=== PATIENT | female | born 1935 | race Caucasian/White ===

== ENCOUNTER 2017-12-22 06:37 | Inpatient (IN) | payer MEDICARE ==
[~2017-12-22] VITALS: Ht 162.6 cm; Wt 80.8 kg
[2017-12-22] VITALS (7 sets, daily range): BP systolic 152–169; BP diastolic 63–71
[~2017-12-22 06:37] MED LIST: ACID REDUCER200 MG PO; AMILORIDE HCL-1 EACH PO; ASPIR 8181 MG PO; B-12500 MCG PO; COSAMIN ASU CA1 EACH PO; D3 PO; LOSARTAN POTAS100 MG PO; OSCAL PO; SIMVASTATIN40 MG PO; TRAMADOL-ACETAMI1 EA PO; VERAPAMIL ER120 MG PO
[2017-12-22] MEDS ORDERED: ONDANSETRON HCL INJ 2 MG/ML VIAL IV STA ×2 (06:55→09:26)
[2017-12-22] MEDS ORDERED: HYDROMORPHONE 1MG/1ML INJ IV STA (06:55)
[2017-12-22] MEDS ORDERED: ONDANSETRON HCL INJ 2 MG/ML VIAL ONE (06:57)
[2017-12-22] MEDS ORDERED: HYDROMORPHONE 2MG/ML 2 MG/ML ML ONE (06:57)
[2017-12-22 07:06] LABS: BASOPHILS # (AUTO) 0.1 (0.0-0.1); BASOPHILS % 0.4 % (0.0-1.0); EOSINOPHILS # (AUTO) 0.1 (0.0-0.4); EOSINOPHILS % 0.5 % (0.0-6.0); HEMATOCRIT 36.7 % (34.2-44.1); HEMOGLOBIN 12.7 g/dL (12.0-16.0); LYMPHOCYTES # (AUTO) 1.6 (1.0-3.2); LYMPHOCYTES % 10.4 % (18.0-39.1); MEAN CORPUSCULAR HEMOGLOBIN 32.4 pg (28-32); MEAN CORPUSCULAR HGB CONC 34.6 g/dL (31-35); MEAN CORPUSCULAR VOLUME 93.6 fL (81-99); MONOCYTES # (AUTO) 1.5 (0.2-0.8); MONOCYTES % 9.6 % (4.4-11.3); NEUTROPHILS % 78.4 % (38.7-80.0); PLATELET COUNT 257 x10e3/uL (140-360); RED BLOOD COUNT 3.92 x10e6/uL (3.6-5.1); RED CELL DISTRIBUTION WIDTH 12.4 % (11.7-14.4)
[2017-12-22 07:10] LABS: INR 0.8; PARTIAL THROMBOPLASTIN TIME 24.6 seconds (23.8-35.5); PROTHROMBIN TIME 11.8 seconds (11.9-14.5)
[2017-12-22] MEDS ORDERED: HYDROMORPHONE 2MG/ML 2 MG/ML ML IV NR (07:15)
[2017-12-22 07:19] LABS: ALBUMIN 4.1 g/dL (3.5-5.0); ALBUMIN/GLOBULIN RATIO 1.5 (0.8-2.0); CALCIUM 10.1 mg/dL (8.4-10.2); CREATININE, SERUM 1.13 mg/dL (0.57-1.11)
[2017-12-22] MEDS ORDERED: IRBESARTAN300 MG PO (07:50)
[2017-12-22] MEDS ORDERED: ACEBUTOLOL HCL400 MG PO (07:50)
[2017-12-22] MEDS ORDERED: AMLODIPINE BESY10 MG PO (07:50)
[2017-12-22] MEDS ORDERED: ULTRAM 50MG50 MG PO (07:50)
[2017-12-22] MEDS ORDERED: HYDROCHLOROTH12.5 M1 PO (07:50)
[2017-12-22 07:55] LABS: BILIRUBIN,URINE NEGATIVE (NEGATIVE); CLARITY,URINE CLOUDY (CLEAR); COLOR,URINE YELLOW (YELLOW); KETONES,URINE NEGATIVE (NEGATIVE); LEUKOCYTE ESTERASE ,URINE TRACE (NEGATIVE); NITRITE,URINE POSITIVE (NEGATIVE); PROTEIN,URINE DIPSTICK 1+ (NEGATIVE); URINE UROBILINOGEN 0.2 mg/dL (0.2 - 1)
[2017-12-22 07:56] LABS: BACTERIA,URINE MANY /HPF; EPITHELIAL CELLS,URINE RARE /LPF; RBC,URINE 0-5 /HPF (0-5); WBC,URINE (MAN) >50 /HPF (0-5)
[2017-12-22] MEDS: CEFTRIAXONE SOD 1 GM VIAL IV SCH (08:37)
--- NOTE | 2017-12-22 08:58 | Diagnostic Imaging Report ---
PROCEDURE: A single AP view of the chest. COMPARISON: Chest radiograph 07/06/2011. Report from chest radiograph 06/15/2016 is available but images are not available at the time of dictation. INDICATIONS: FALL FINDINGS: Lines/tubes: None. Lungs: The lungs are well inflated. There is a rounded opacity with internal lucency projecting over the left lower lung zone. Incidental azygous lobe. Pleura: There is no pleural effusion or pneumothorax. Heart and mediastinum: Large hiatal hernia. Cardiac silhouette is unremarkable. Bones: No acute bony abnormality. IMPRESSION: No evidence of displaced fracture or pneumothorax. Nodular opacity with internal lucency overlying the left lower lung likely represents nipple shadow or overlying rib. However, a lung nodule can have a similar appearance. A repeat chest radiograph with nipple marker is suggested. Large hiatal hernia. Dictated by: BEA MARQUEZ M.D. on 12/22/2017 at 9:06 Electronically approved by: BEA MARQUEZ M.D. on 12/22/2017 at 9:06
--- NOTE | 2017-12-22 09:10 | Diagnostic Imaging Report ---
PROCEDURE:HIP LEFT 2-3 VW (+/- PELVIS) COMPARISON:None. INDICATIONS:FALL FINDINGS: Diffuse osteopenia. There is a displaced left femoral neck fracture, visualization is somewhat limited but possibly a transcervical neck fracture. There is approximately 1.5 cm of lateral displacement of the distal component. The left femoral head is aligned with the acetabulum. AP radiograph of the pelvis demonstrates moderate bilateral hip degenerative changes with joint space narrowing and subchondral sclerosis. Moderate degenerative changes of the pubic symphysis and bilateral sacroiliac joints. Partially seen lower lumbar spine degenerative changes. CONCLUSION: Displaced left femoral neck fracture, possibly transcervical as above. Dictated by: BEA MARQUEZ M.D. on 12/22/2017 at 9:18 Electronically approved by: BEA MARQUEZ M.D. on 12/22/2017 at 9:18
[2017-12-22] MEDS ORDERED: DEXTROSE 50% SYRINGE 50 ML IV PRN (09:45)
[2017-12-22] MEDS ORDERED: HYDROMORPHONE 1MG/1ML INJ IV PRN (09:45)
--- OUTSIDE RECORDS SUMMARY | 2017-12-22 10:05 | XMS REPORT ---
Author Author [facility] Address Unknown Phone Unavailable Care Team Providers Care Surveying Crew Stake Runner Name Role Phone RASHAUNCONY Hardy SEARS Unavailable Unavailable Problems This patient has no known problems. Allergies, Adverse Reactions, Alerts This patient has no known allergies or adverse reactions. Medications This patient has no known medications. Results Test Description Test Time Test Comments Text Results Atomic Results Result Comments HIP LEFT 2-3 VW (+/- PELVIS) 2017-12-22 09:18:00 [place] [id number] Patient Name: TRISTA JENSEN MR #: [id number] : 1935 Age/Sex: 82/F Req #: [id number] Adm Physician: Ordered by: XOCHILT WELLS MD Report #: [id number] Location: ER Room/Bed: Procedure: [id number] DX/HIP LEFT 2-3 VW (+/- PELVIS) Exam Date: Exam Time: REPORT STATUS: Signed PROCEDURE: HIP LEFT 2-3 VW (+/- PELVIS) COMPARISON: None. INDICATIONS: FALL FINDINGS: Diffuse osteopenia. There is a displaced left femoral neck fracture, visualization is somewhat limited but possibly a transcervical neck fracture. There is approximately 1.5 cm of lateral displacement of the distal component. The left femoral head is aligned with the acetabulum. AP radiograph of the pelvis demonstrates moderate bilateral hip degenerative changes with joint space narrowing and subchondral sclerosis. Moderate degenerative changes of the pubic symphysis and bilateral sacroiliac joints. Partially seen lower lumbar spine degenerative changes. CONCLUSION: Displaced left femoral neck fracture, possibly transcervical as above. Dictated by: BEA MARQUEZ M.D. on 12/22/2017 at 9:18 Electronically approved by: BEA MARQUEZ M.D. on 12/22/2017 at 9:18 Dictated By: BEA MARQUEZ MD 7 Transcribed By: VIOLA on 12/22/17917 COPY TO: XOCHILT WELLS MD CHEST SINGLE (PORTABLE) 2017-12-22 09:06:00 [place] [id number] Patient Name: TRISTA JENSEN MR #: [id number] : 1935 Age/Sex: 82/F Req #: [id number] Adm Physician: Ordered by: XOCHILT WELLS MD Report #: [id number] Location: ER Room/Bed: Procedure: [id number] DX/CHEST SINGLE (PORTABLE) Exam Date: Exam Time: REPORT STATUS: Signed PROCEDURE: A single AP view of the chest. COMPARISON: Chest radiograph 07/06/2011. Report from chest radiograph 06/15/2016 is available but images are not available at the time of dictation. INDICATIONS: FALL FINDINGS: Lines/tubes: None. Lungs: The lungs are well inflated. There is a rounded opacity with internal lucency projecting over the left lower lung zone. Incidental azygous lobe. Pleura: There is no pleural effusion or pneumothorax. Heart and mediastinum: Large hiatal hernia. Cardiac silhouette is unremarkable. Bones: No acute bony abnormality. IMPRESSION: No evidence of displaced fracture or pneumothorax. Nodular opacity with internal lucency overlying the left lower lung likely represents nipple shadow or overlying rib. However, a lung nodule can have a similar appearance. A repeat chest radiograph with nipple marker is suggested. Large hiatal hernia. Dictated by: BEA MARQUEZ M.D. on 12/22/2017 at 9:06 Electronically appro marybeth by: BEA MARQUEZ M.D. on 12/22/2017 at 9:06 Dictated By: BEA MARQUEZ MD 5 Transcribed By: VIOLA on 12/22/17905 COPY TO: XOCHILT WELSL MD
[2017-12-22] MEDS: SODIUM CHLORIDE 0.9% 1000ML 1,000 ML IV SCH ×2 (10:10→17:36)
[2017-12-22] MEDS: ONDANSETRON HCL INJ 2 MG/ML VIAL IV PRN ×3 (11:28→19:51)
[2017-12-22] MEDS: HYDROMORPHONE 2MG/ML 2 MG/ML ML IV PRN ×2 (11:28→19:51)
[2017-12-22] MEDS: INSULIN REGULAR, HUMAN 100 UNIT/1 ML 3ML VIAL SQ SCH ×3 (11:30→21:00)
--- NOTE | 2017-12-22 15:19 | Consultation ---
DATE OF CONSULTATION: December 22, 2017 CARDIOLOGY CONSULTATION REASON FOR CONSULTATION: Heart murmur. HISTORY OF PRESENT ILLNESS: This is a pleasant, 82-year-old female who presented status post fall. According to the patient, she stated she woke up this morning feeling sick to her stomach. She lost her balance and accidentally fell. She complained of left hip pain, and she was brought to the emergency room for further evaluation. In the ER, they did a hip x-ray that showed left hip fracture. She is on lift traction and planning surgical intervention. She has a history of high blood pressure and hyperlipidemia. She denied any chest pain, any dizziness, any shortness of breath, any headache or diaphoresis. EKG showed normal sinus rhythm with no ST abnormalities. PAST MEDICAL HISTORY: Hypertension, hyperlipidemia, arthritis, glaucoma, cataracts, hiatal hernia, diverticulitis, internal hemorrhoids, hyponatremia. PAST SURGICAL HISTORY: Hysterectomy, tonsillectomy and colonoscopy in the past. FAMILY HISTORY: Positive for CAD. SOCIAL HISTORY: No smoking, no drinking. She lives at home with her family. MEDICATIONS: See med list. ALLERGIES: SHE HAS MULTIPLE ALLERGIES; SEE CHART. REVIEW OF SYSTEMS: Negative except those mentioned above. She is status post fall. PHYSICAL EXAMINATION VITAL SIGNS: Temperature 97, heart rate 69, blood pressure 153/70, respirations 20, oxygen saturation 95% on room air. GENERAL: She is awake, alert, and oriented x3. HEENT: Mucous membranes moist. NECK: Supple. LUNGS: Bilaterally clear to auscultation. CARDIOVASCULAR: S1, S2 present with a diastolic murmur of 2/4. ABDOMEN: Soft, but she is complaining of nausea and vomiting. NEUROLOGIC: Intact. EXTREMITIES: No edema. Left leg on traction. LABORATORY DATA: Sodium 155, potassium 4.0, chloride 99, CO2 of 23, BUN 13, creatinine 1.13, glucose 223, white blood cells 15.3, hemoglobin 12.7, hematocrit 36.7, platelets 57,000, PT 11.8 PTT 24.6, INR 0.80. IMPRESSION 1. Status post fall. 2. Left hip fracture. 3. Abdominal pain with nausea and vomiting. 4. Hypertension. 5. Hyperlipidemia. 6. Renal insufficiency. 7. Diabetes. 8. Heart murmur, diastolic and diastolic. PLAN: 1. She is to have echocardiogram to assess the LV and the value function. 2. Due to the nausea and vomiting, will to ahead and get a KUB to rule out any occlusion. 3. She is pending for hip surgery. 4. She will be cleared for surgery after echocardiogram. 5. Will continue her home blood pressure medications. Further cardiac work pending clinical course. Thank you for this consult. Dictated by Jesse Barcenas NP Job#: [id number] THAI
--- NOTE | 2017-12-22 16:01 | Diagnostic Imaging Report ---
EXAM: Abdomen 2 Views INDICATION: ^NAUSEA/VOMITTING ^20171222 ^1520 COMPARISON: None FINDINGS: Mild amount of stool in the colon. Few mildly distended loops of small bowel in the mid abdomen with positive bowel with gas in the rectum. No renal calculi. No abnormal soft tissue masses. Moderate degenerative changes in the lumbar spine and pelvis. IMPRESSION: Ileus versus partial small bowel obstruction. Recommend further evaluation with CT abdomen and pelvis with contrast. Signed by: Dr. Martha Martinez M.D. on 12/22/2017 3:58 PM
[2017-12-22] MEDS ORDERED: ACEBUTOLOL HCL 400 MG PO SCH (21:00)
[2017-12-22] MEDS ORDERED: TRAMADOL HCL 50 MG TAB PO PRN (21:00)
[2017-12-22] MEDS ORDERED: CIMETIDINE 200 MG PO SCH (21:00)
[2017-12-22] MEDS ORDERED: FAMOTIDINE 20 MG TAB PO PRN (21:30)
[2017-12-22] MEDS: ACEBUTOLOL HCL 200 MG CAP PO SCH (21:43)
[2017-12-22] MEDS: SIMVASTATIN 40 MG TAB PO SCH (21:43)
[2017-12-22] MEDS: PROMETHAZINE 25MG/ NS 50ML (IV) IV PRN (21:59)
[2017-12-23] VITALS (8 sets, daily range): BP systolic 142–182; BP diastolic 65–84
[2017-12-23] MEDS: ONDANSETRON HCL INJ 2 MG/ML VIAL IV PRN ×3 (01:32→17:14)
[2017-12-23] MEDS: SODIUM CHLORIDE 0.9% 1000ML 1,000 ML IV SCH ×3 (01:36→17:15)
[2017-12-23] MEDS: HYDRALAZINE HCL 20 MG/ML VIAL IV PRN (04:28)
[2017-12-23] MEDS: PROMETHAZINE 25MG/ NS 50ML (IV) IV PRN (04:40)
[2017-12-23] MEDS: MORPHINE SULFATE 2 MG/ML SYR IV PRN ×3 (04:40→17:14)
[2017-12-23 05:37] LABS: BASOPHILS % 0.2 % (0.0-1.0); HEMATOCRIT 32.6 % (34.2-44.1); HEMOGLOBIN 11.5 g/dL (12.0-16.0); LYMPHOCYTES % 6.2 % (18.0-39.1); MEAN CORPUSCULAR HEMOGLOBIN 32.4 pg (28-32); MEAN CORPUSCULAR HGB CONC 35.3 g/dL (31-35); MEAN CORPUSCULAR VOLUME 91.8 fL (81-99); MONOCYTES # (AUTO) 1.4 (0.2-0.8); MONOCYTES % 8.5 % (4.4-11.3); NEUTROPHILS # (AUTO) 14.1 (2.1-6.9); NEUTROPHILS % 83.6 % (38.7-80.0); PLATELET COUNT 235 x10e3/uL (140-360); RED BLOOD COUNT 3.55 x10e6/uL (3.6-5.1); RED CELL DISTRIBUTION WIDTH 12.5 % (11.7-14.4)
[2017-12-23 05:57] LABS: ANION GAP 16.6 mmol/L (8-16); BLOOD UREA NITROGEN 17 mg/dL (7-26); BUN/CREATININE RATIO 20 (6-25); CALCIUM 9.1 mg/dL (8.4-10.2); CARBON DIOXIDE 22 mmol/L (22-29); CHLORIDE 105 mmol/L (98-107); CREATININE, SERUM 0.86 mg/dL (0.57-1.11); EST GLOMERULAR FILTRATION RATE > 60 ML/MIN (60-); GLUCOSE 254 mg/dL (74-118); POTASSIUM 3.6 mmol/L (3.5-5.1); SODIUM 140 mmol/L (136-145)
[2017-12-23] MEDS: INSULIN REGULAR, HUMAN 100 UNIT/1 ML 3ML VIAL SQ SCH ×4 (07:30→21:47)
[2017-12-23] MEDS: ASPIRIN 81 MG CHEW TAB PO SCH (09:00)
[2017-12-23] MEDS: [UNRECOGNIZED DRUG - OTHER] PO SCH (09:00)
[2017-12-23] MEDS ORDERED: NON-FORMULARY MEDICATION (Hydrochlorothiazide 12.5 MG) PO SCH (09:00)
[2017-12-23] MEDS: CYANOCOBALAMIN 1,000 MCG TAB PO SCH (09:00)
[2017-12-23] MEDS ORDERED: NON-FORMULARY MEDICATION (Irbesartan 300 MG) PO SCH (09:00)
[2017-12-23] MEDS: IRBESARTAN 150 MG TAB PO SCH (09:00)
[2017-12-23] MEDS: CHOLECALCIFEROL 1,000 UNIT TAB PO SCH (09:00)
[2017-12-23] MEDS: AMLODIPINE BESYLATE 10 MG TAB PO SCH (09:00)
[2017-12-23] MEDS: ACEBUTOLOL HCL 200 MG CAP PO SCH ×3 (09:00→21:46)
[2017-12-23] MEDS: HYDROCHLOROTHIAZIDE 25 MG TAB PO SCH (09:00)
[2017-12-23] MEDS ORDERED: CYANOCOBALAMIN 500 MCG PO SCH (09:00)
[2017-12-23] MEDS: LOSARTAN POTASSIUM 100 MG TAB PO SCH (09:00)
[2017-12-23] MEDS ORDERED: INTLU PO SCH (09:00)
[2017-12-23] MEDS: CEFTRIAXONE SOD 1 GM VIAL IV SCH (09:30)
[2017-12-23] MEDS ORDERED: CLONIDINE HCL 0.1 MG/24 HR 1 EA PATCH ONE (09:34)
[2017-12-23] MEDS ORDERED: CLONIDINE HCL 0.1 MG/24 HR 1 EA PATCH TOP SCH (09:45)
--- NOTE | 2017-12-23 14:50 | Diagnostic Imaging Report ---
EXAMINATION: CT of the abdomen and pelvis without contrast. TECHNIQUE: Helical CT images of the abdomen and pelvis were performed from the lung bases to the lesser trochanters. No intravenous contrast was given per renal stone protocol. Coronal and sagittal reformatted images were obtained. COMPARISON: None. CLINICAL HISTORY:pain, fall DISCUSSION: ABSENCE OF INTRAVENOUS CONTRAST DECREASES SENSITIVITY FOR DETECTION OF FOCAL LESIONS AND VASCULAR PATHOLOGY. ABDOMEN/PELVIS: LOWER THORAX: Large hiatal hernia. HEPATOBILIARY:No focal hepatic lesions. No biliary ductal dilation. Cholecystectomy with reservoir effect in the common bile duct. SPLEEN: No splenomegaly. PANCREAS: No focal masses or ductal dilatation. ADRENALS: No adrenal nodules. KIDNEYS/URETERS: No hydronephrosis, stones, or solid mass lesions. PELVIC ORGANS/BLADDER: Manzano catheter within the decompressed bladder. Hysterectomy. PERITONEUM/RETROPERITONEUM: No free air or fluid. LYMPH NODES: No intra-abdominal,retroperitoneal, pelvic or inguinal lymphadenopathy. VESSELS: Vascular calcifications. GI TRACT: Mildly dilated loops of small bowel measuring up to 4 cm. The transition point is not well identified. BONES AND SOFT TISSUES: Multilevel degenerative disc disease most severe at L1-L2 and L5-S1. Lower lumbar facet arthropathy. Retrolisthesis of L1 on L2. Subacute appearing displaced fracture of the left femoral neck with impaction. IMPRESSION: Multiple dilated loops of small bowel likely reflects obstruction. The transition point is not well identified. Subacute appearing displaced left femoral neck fracture Signed by: Dr. Lenny Sheridan M.D. on 12/23/2017 2:47 PM
[2017-12-23] MEDS: ENOXAPARIN 30 MG/0.3 ML SYR SC SCH (17:15)
[2017-12-23] MEDS: SIMVASTATIN 40 MG TAB PO SCH (21:46)
[2017-12-24] VITALS: BP 174/74
[2017-12-24] MEDS: HYDRALAZINE HCL 20 MG/ML VIAL IV PRN ×2 (00:53→17:09)
[2017-12-24] MEDS: SODIUM CHLORIDE 0.9% 1000ML 1,000 ML IV SCH ×2 (01:36→09:36)
[2017-12-24] MEDS: MORPHINE SULFATE 2 MG/ML SYR IV PRN ×3 (02:10→11:15)
[2017-12-24 04:00] VITALS: BP 184/72
[2017-12-24] MEDS: ONDANSETRON HCL INJ 2 MG/ML VIAL IV PRN ×3 (06:32→17:44)
[2017-12-24] MEDS: INSULIN REGULAR, HUMAN 100 UNIT/1 ML 3ML VIAL SQ SCH ×3 (07:30→16:30)
[2017-12-24] MEDS: CEFTRIAXONE SOD 1 GM VIAL IV SCH (08:30)
[2017-12-24 08:40] VITALS: BP 167/70
[2017-12-24 08:45] VITALS: BP 167/70
[2017-12-24] MEDS: LOSARTAN POTASSIUM 100 MG TAB PO SCH (09:00)
[2017-12-24] MEDS: ACEBUTOLOL HCL 200 MG CAP PO SCH ×2 (09:00→15:00)
[2017-12-24] MEDS: HYDROCHLOROTHIAZIDE 25 MG TAB PO SCH (09:00)
[2017-12-24] MEDS: AMLODIPINE BESYLATE 10 MG TAB PO SCH (09:00)
[2017-12-24] MEDS: IRBESARTAN 150 MG TAB PO SCH (09:00)
[2017-12-24] MEDS: CYANOCOBALAMIN 1,000 MCG TAB PO SCH (09:00)
[2017-12-24] MEDS: [UNRECOGNIZED DRUG - OTHER] PO SCH (09:00)
[2017-12-24] MEDS: CHOLECALCIFEROL 1,000 UNIT TAB PO SCH (09:00)
[2017-12-24] MEDS: ASPIRIN 81 MG CHEW TAB PO SCH (09:00)
[2017-12-24 12:24] VITALS: BP 145/65
[2017-12-24 14:14] LABS: BASOPHILS % 0.2 % (0.0-1.0); HEMATOCRIT 31.7 % (34.2-44.1); HEMOGLOBIN 10.8 g/dL (12.0-16.0); LYMPHOCYTES # (AUTO) 1.9 (1.0-3.2); LYMPHOCYTES % 9.8 % (18.0-39.1); MEAN CORPUSCULAR HEMOGLOBIN 32.7 pg (28-32); MEAN CORPUSCULAR HGB CONC 34.1 g/dL (31-35); MEAN CORPUSCULAR VOLUME 96.1 fL (81-99); MONOCYTES # (AUTO) 2.9 (0.2-0.8); MONOCYTES % 14.6 % (4.4-11.3); NEUTROPHILS # (AUTO) 14.7 (2.1-6.9); NEUTROPHILS % 74.7 % (38.7-80.0); PLATELET COUNT 211 x10e3/uL (140-360); RED CELL DISTRIBUTION WIDTH 12.9 % (11.7-14.4)
[2017-12-24] MEDS: PROMETHAZINE 25MG/ NS 50ML (IV) IV PRN ×2 (14:20→14:45)
[2017-12-24] MEDS ORDERED: SODIUM CHLORIDE 0.9% 50ML 50 ML ONE (14:33)
[2017-12-24 14:36] LABS: ALANINE AMINOTRANSFERASE 15 IU/L (0-55); ALBUMIN 3.1 g/dL (3.5-5.0); ALBUMIN/GLOBULIN RATIO 1.1 (0.8-2.0); ALKALINE PHOSPHATASE 44 IU/L (40-150); ANION GAP 14.5 mmol/L (8-16); BLOOD UREA NITROGEN 19 mg/dL (7-26); BUN/CREATININE RATIO 25 (6-25); CARBON DIOXIDE 23 mmol/L (22-29); CHLORIDE 113 mmol/L (98-107); CREATININE, SERUM 0.76 mg/dL (0.57-1.11); EST GLOMERULAR FILTRATION RATE > 60 ML/MIN (60-); GLUCOSE 150 mg/dL (74-118); POTASSIUM 3.5 mmol/L (3.5-5.1); SODIUM 147 mmol/L (136-145)
[2017-12-24] MEDS ORDERED: SODIUM CHLORIDE 0.9% 250ML IRRIG IR SCH (16:15)
[2017-12-24 16:49] VITALS: BP 171/67
[2017-12-24] MEDS: ENOXAPARIN 30 MG/0.3 ML SYR SC SCH (17:09)
[2017-12-24] MEDS ORDERED: CEFTRIAXONE SOD 1 GM VIAL IV SCH (21:00)
== END 2017-12-24 18:31 | disposition short-term general hospital (02) | DRG 536 ==
LOC: ER 06:37 → ERHOLD 10:03 → MED/SURG 11:09 → ERHOLD 11:11 → MED/SURG 11:33
DX: S72.032A Displaced midcervical fracture of left femur, initial encounter for closed fracture (principal); N30.00 Acute cystitis without hematuria; K56.7 Ileus, unspecified; W01.0XXA Fall on same level from slipping, tripping and stumbling without subsequent striking against object, initial encounter; Y92.009 Unspecified place in unspecified non-institutional (private) residence as the place of occurrence of the external cause; B96.20 Unspecified Escherichia coli [E. coli] as the cause of diseases classified elsewhere; E11.65 Type 2 diabetes mellitus with hyperglycemia; Z66 Do not resuscitate; N28.9 Disorder of kidney and ureter, unspecified; R11.2 Nausea with vomiting, unspecified; R10.9 Unspecified abdominal pain; M06.9 Rheumatoid arthritis, unspecified; H40.9 Unspecified glaucoma; K44.9 Diaphragmatic hernia without obstruction or gangrene; K64.8 Other hemorrhoids; I35.0 Nonrheumatic aortic (valve) stenosis; I10 Essential (primary) hypertension; Z82.49 Family history of ischemic heart disease and other diseases of the circulatory system; Z79.82 Long term (current) use of aspirin; E78.5 Hyperlipidemia, unspecified
CPT/HCPCS: 36415; 51700; 71045; 74018; 74176; 80048; 80053; 81001; 82948; 83036; 85025; 85610; 85730; 87086; 87186; 93005; 93306; 97139; 99284; J0360; J0696; J1650; J2270; J2405; J2550; J7030

== ENCOUNTER 2018-03-03 16:48 | Emergency (ER) | payer MEDICARE ==
[~2018-03-03] VITALS: Ht 162.6 cm; Wt 67.1 kg
[~2018-03-03 16:48] MED LIST changes: +ACEBUTOLOL HCL400 MG PO; +AMLODIPINE BESY10 MG PO; +HYDROCHLOROTH12.5 M1 PO; +IRBESARTAN300 MG PO; +ULTRAM 50MG50 MG PO
--- OUTSIDE RECORDS SUMMARY | 2018-03-03 16:52 | XMS REPORT | Clinical Summary ---
Author Author [facility] Organization [facility] Address Unknown Phone Unavailable Care Team Providers Care Supervisor Cold Rolling Name Role Phone Asked, No Pcp PCP Unavailable Allergies Comments Active Allergy Reactions Severity Noted Date Codeine GI 12/24/2017 Intolerance Amitriptyline 12/24/2017 Iodine Anaphylaxis High 12/24/2017 Sulfa (Sulfonamide 12/24/2017 Antibiotics) Medications End Date Status Medication Sig Dispensed Refills Start Date Active aspirin (ECOTRIN) 81 MG Take 81 mg by 0 enteric coated tablet mouth daily. Active simvastatin (ZOCOR) 40 MG Take 40 mg by 0 tablet mouth nightly. Active hydroCHLOROthiazide Take 12.5 mg 0 (HYDRODIURIL) 12.5 MG by mouth tablet daily. Active irbesartan (AVAPRO) 300 Take 300 mg 0 MG tablet by mouth nightly. Active cholecalciferol, vitamin Take 1,000 0 D3, (VITAMIN D3) 1,000 Units by unit tablet mouth daily. Active cyanocobalamin (VITAMIN Take 500 mcg 0 B-12) 1000 MCG tablet by mouth daily. Active clonIDINE (CATAPRES-TTS) Place 1 patch 0 0.1 mg/24 hr on the skin once a week. 01/10/2018 Discontinued amLODIPine (NORVASC) 10 Take 10 mg by 0 mg tablet mouth daily. 01/09/2018 Discontinued acebutolol (SECTRAL) 200 Take 400 mg 0 MG capsule by mouth 2 (two) times a day. 02/09/2018 glipiZIDE (GLUCOTROL) 5 Take 1 tablet 30 tablet 0 201 MG tablet (5 mg total) 8 by mouth daily with breakfast for 30 days. 02/08/2018 enoxaparin (LOVENOX) 40 Inject 0.4 mL 12 mL 0 mg/0.4 mL syringe (40 mg total) 8 under the skin daily for 30 days. 02/08/2018 acebutolol (SECTRAL) 200 Take 1 120 capsule 0 MG capsule capsule (200 8 mg total) by mouth 2 (two) times a day for 30 days. 02/09/2018 acetaminophen (TYLENOL) Take 1 tablet 120 tablet 0 500 MG tablet (500 mg 8 total) by mouth 4 (four) times a day with meals and nightly for 30 days. 02/10/2018 amLODIPine (NORVASC) 5 mg Take 1 tablet 30 tablet 0 tablet (5 mg total) 8 by mouth daily for 30 days. 01/15/2018 colchicine 0.6 mg tablet Take 1 tablet 5 tablet 0 (0.6 mg 8 total) by mouth daily for 5 days. Active Problems Problem Noted Date Aortic stenosis 12/25/2017 Renovascular hypertension 12/25/2017 Hypertensive heart disease with chronic diastolic congestive heart failure 12/25/2017 L hip fx s/p JACQUELYN 12/26/17 12/24/2017 Closed fracture of left hip 12/24/2017 Overview: Added automatically from request for surgery [id number] Encounters Care Team Description Date Type Specialty Eyal Jett MD Status post left hip replacement (Primary Dx) 02/22/2018 Office Visit Orthopedic Surgery Mechelle Doran Left hip pain (Primary Dx) 02/15/2018 Orders Only Orthopedic Surgery Eyal Jett MD Closed displaced fracture of greater trochanter of left femur, initial encounter ([facility]) (Primary Dx); L hip fx s/p JACQUELYN 12/26/17; Closed fracture of left hip, sequela 01/25/2018 Office Visit Orthopedic Surgery Adrienne Mi MA Left hip pain (Primary Dx) 01/25/2018 Orders Only Orthopedic Surgery Edmar Mota MD 12/29/2017 Anesthesia General Surgery Event Ruddy Tamayo MD LAPAROTOMY, EXPLORATORY, NASIR, poss small bowel resection 12/29/2017 Surgery General Surgery Eyal Jett MD HEMIARTHROPLASTY, HIP, LEFT 12/26/2017 Surgery Orthopedic Surgery Selena Marie MD 12/26/2017 Anesthesia Orthopedic Surgery Event Chester Montano MD Closed fracture of left hip, initial encounter ([facility]) (Primary Dx); Hip fx, left, closed, initial encounter ([facility]) 12/24/2017 [facility] Orthopedic Surgery - Encounter 01/10/2018 N/A 12/24/2017 Intake Access after 03/02/2017 Social History Date Tobacco Use Types Packs/Day Years Used Never Smoker Smokeless Tobacco: Never Used Alcohol Use Drinks/Week oz/Week Comments No Alcohol Habits Answer Date Recorded How often do you have a drink containing alcohol? Never 12/26/2017 How many drinks containing alcohol do you have on Not asked a typical day when you are drinking? How often do you have six or more drinks on one Not asked occasion? Sex Assigned at Date Recorded Not on file Industry Job Start Date Occupation Not on file Not on file Not on file Travel End Travel History Travel Start No recent travel history available. Last Filed Vital Signs Time Taken Vital Sign Reading 01/10/2018 3:42 PM SOFTWARE CONFIGURATION SPECIALIST Blood Pressure 185/77 01/10/2018 3:42 PM SOFTWARE CONFIGURATION SPECIALIST Pulse 79 01/10/2018 3:42 PM SOFTWARE CONFIGURATION SPECIALIST Temperature 37.3 C (99.1 F) 01/10/2018 3:42 PM SOFTWARE CONFIGURATION SPECIALIST Respiratory Rate 17 01/10/2018 3:42 PM SOFTWARE CONFIGURATION SPECIALIST Oxygen Saturation 93% - Inhaled Oxygen - Concentration 02/22/2018 9:49 AM SOFTWARE CONFIGURATION SPECIALIST Weight 67.1 kg (148 lb) 02/22/2018 9:49 AM SOFTWARE CONFIGURATION SPECIALIST Height 157.5 cm (5' 2") 02/22/2018 9:49 AM SOFTWARE CONFIGURATION SPECIALIST Body Mass Index 27.07 Plan of Treatment Health Maintenance Due Date Last Done Comments SHINGLES VACCINES (1 of 1983 2) PNEUMOCOCCAL 1998 POLYSACCHARIDE VACCINE AGE 65 AND OVER PNEUMOCOCCAL-13 1998 INFLUENZA VACCINE 09/14/2017 Implants Device Identifier Shelf Expiration Date Model / Serial / Lot Implanted Type Area Manufactur er 11/06/2027 11 [id number] / / [id number] Head Fml Tpr I Modlr W/O Skirt Hip Joint Left: Hip [employer] Co-Cr 36x-3mm - [id number] Implants Implanted: Qty: 1 on 12/26/2017 by Eyal Jett MD 06/28/2027 [id number] / / [id number] Osseoti Multihole 50mm D - IPM Left: Hip BIOMET, [id number] [employer] Implanted: Qty: 1 on 12/26/2017 by DEVICES Eyal Jett MD 07/07/2022 [id number] / / [id number] Liner G7 Neutral Arcomxl E36 - IPM Left: Hip BIOMET, [id number] [employer] Implanted: Qty: 1 on 12/26/2017 by Eyal Mabry MD 09/18/2027 [id number] / / [id number] Echo Bimetric Por Fem Red Nc [id number] IPM Left: Hip BIOMET, - [id number] [employer] Implanted: Qty: 1 on 12/26/2017 by Eyal Mabry MD 11/14/2027 [id number] / / [id number] Screw Bone Slf-Tap 6.5x25mm Tr[employer] Orthopedic Left: Hip [employer] - [id number] Trauma Implanted: Qty: 1 on 12/26/2017 by Implants Eyal Jett MD 10/15/2027 [id number] / / [id number] Screw Bone Slf-Tap 6.5x30mm [employer] Left: Hip [employer] - [id number] Trauma Implanted: Qty: 1 on 12/26/2017 by Implants Eyal Jett MD Procedures Comments Procedure Name Priority Date/Time Associated Diagnosis XR HIP 2-3 VIEWS LEFT Routine 02/22/2018 Left hip pain 9:58 AM SOFTWARE CONFIGURATION SPECIALIST XR HIP 2-3 VIEWS LEFT Routine 01/25/2018 Left hip pain 10:04 AM SOFTWARE CONFIGURATION SPECIALIST POC GLUCOSE Routine 01/10/2018 11:29 AM SOFTWARE CONFIGURATION SPECIALIST POC GLUCOSE Routine 01/10/2018 7:39 AM SOFTWARE CONFIGURATION SPECIALIST ESTIMATED GFR Routine 01/10/2018 4:00 AM SOFTWARE CONFIGURATION SPECIALIST B NATRIURETIC PEPTIDE Routine 01/10/2018 4:00 AM SOFTWARE CONFIGURATION SPECIALIST BASIC METABOLIC PANEL Routine 01/10/2018 4:00 AM SOFTWARE CONFIGURATION SPECIALIST HC COMPLETE BLD COUNT Routine 01/10/2018 W/AUTO DIFF 4:00 AM SOFTWARE CONFIGURATION SPECIALIST POC GLUCOSE Routine 01/09/2018 9:37 PM SOFTWARE CONFIGURATION SPECIALIST POC GLUCOSE Routine 01/09/2018 8:42 PM SOFTWARE CONFIGURATION SPECIALIST CRYSTAL ANALYSIS STAT 01/09/2018 6:02 PM SOFTWARE CONFIGURATION SPECIALIST CELL COUNT AND STAT 01/09/2018 DIFFERENTIAL, BODY FLUID 6:02 PM SOFTWARE CONFIGURATION SPECIALIST XR KNEE 1 OR 2 VW RIGHT STAT 01/09/2018 5:55 PM SOFTWARE CONFIGURATION SPECIALIST GRAM STAIN Routine 01/09/2018 5:23 PM SOFTWARE CONFIGURATION SPECIALIST ANAEROBIC CULTURE Routine 01/09/2018 5:23 PM SOFTWARE CONFIGURATION SPECIALIST JOINT FLUID CULTURE Routine 01/09/2018 5:23 PM SOFTWARE CONFIGURATION SPECIALIST POC GLUCOSE Routine 01/09/2018 4:34 PM SOFTWARE CONFIGURATION SPECIALIST POC GLUCOSE Routine 01/09/2018 11:57 AM SOFTWARE CONFIGURATION SPECIALIST POC GLUCOSE Routine 01/09/2018 7:58 AM SOFTWARE CONFIGURATION SPECIALIST POC GLUCOSE Routine 01/09/2018 4:10 AM SOFTWARE CONFIGURATION SPECIALIST ESTIMATED GFR Routine 01/09/2018 4:00 AM SOFTWARE CONFIGURATION SPECIALIST BASIC METABOLIC PANEL Routine 01/09/2018 4:00 AM SOFTWARE CONFIGURATION SPECIALIST POC GLUCOSE Routine 01/09/2018 3:31 AM SOFTWARE CONFIGURATION SPECIALIST HC COMPLETE BLD COUNT Routine 01/09/2018 W/AUTO DIFF 3:30 AM SOFTWARE CONFIGURATION SPECIALIST POC GLUCOSE Routine 01/09/2018 3:28 AM SOFTWARE CONFIGURATION SPECIALIST POC GLUCOSE Routine 01/08/2018 3:35 PM SOFTWARE CONFIGURATION SPECIALIST POC GLUCOSE Routine 01/08/2018 11:45 AM SOFTWARE CONFIGURATION SPECIALIST POC GLUCOSE Routine 01/08/2018 7:36 AM SOFTWARE CONFIGURATION SPECIALIST POC GLUCOSE Routine 01/08/2018 6:22 AM SOFTWARE CONFIGURATION SPECIALIST PREPARE RBC Timed 01/08/2018 6:19 AM SOFTWARE CONFIGURATION SPECIALIST PREPARE RBC Timed 01/08/2018 6:19 AM SOFTWARE CONFIGURATION SPECIALIST TYPE AND SCREEN Timed 01/08/2018 6:19 AM SOFTWARE CONFIGURATION SPECIALIST POC GLUCOSE Routine 01/08/2018 4:38 AM SOFTWARE CONFIGURATION SPECIALIST POC GLUCOSE Routine 01/08/2018 3:42 AM SOFTWARE CONFIGURATION SPECIALIST SMEAR REVIEW Routine 01/08/2018 3:40 AM SOFTWARE CONFIGURATION SPECIALIST HC COMPLETE BLD COUNT Routine 01/08/2018 W/AUTO DIFF 3:40 AM SOFTWARE CONFIGURATION SPECIALIST POC GLUCOSE Routine 01/08/2018 12:10 AM SOFTWARE CONFIGURATION SPECIALIST POC GLUCOSE Routine 01/07/2018 7:42 PM SOFTWARE CONFIGURATION SPECIALIST POC GLUCOSE Routine 01/07/2018 5:30 PM SOFTWARE CONFIGURATION SPECIALIST POC GLUCOSE Routine 01/07/2018 1:05 PM SOFTWARE CONFIGURATION SPECIALIST POC GLUCOSE Routine 01/07/2018 9:06 AM SOFTWARE CONFIGURATION SPECIALIST POC GLUCOSE Routine 01/07/2018 3:16 AM SOFTWARE CONFIGURATION SPECIALIST POC GLUCOSE Routine 01/07/2018 12:33 AM SOFTWARE CONFIGURATION SPECIALIST MAGNESIUM LEVEL Routine 01/07/2018 12:00 AM SOFTWARE CONFIGURATION SPECIALIST ESTIMATED GFR Routine 01/07/2018 12:00 AM SOFTWARE CONFIGURATION SPECIALIST BASIC METABOLIC PANEL Routine 01/07/2018 12:00 AM SOFTWARE CONFIGURATION SPECIALIST POC GLUCOSE Routine 01/06/2018 7:49 PM SOFTWARE CONFIGURATION SPECIALIST POC GLUCOSE Routine 01/06/2018 4:56 PM SOFTWARE CONFIGURATION SPECIALIST POC GLUCOSE Routine 01/06/2018 12:43 PM SOFTWARE CONFIGURATION SPECIALIST POC GLUCOSE Routine 01/06/2018 11:26 AM SOFTWARE CONFIGURATION SPECIALIST POC GLUCOSE Routine 01/06/2018 7:38 AM SOFTWARE CONFIGURATION SPECIALIST POC GLUCOSE Routine 01/06/2018 4:21 AM SOFTWARE CONFIGURATION SPECIALIST POC GLUCOSE Routine 01/05/2018 11:37 PM SOFTWARE CONFIGURATION SPECIALIST POC GLUCOSE Routine 01/05/2018 9:27 PM SOFTWARE CONFIGURATION SPECIALIST POC GLUCOSE Routine 01/05/2018 4:19 PM SOFTWARE CONFIGURATION SPECIALIST POC GLUCOSE Routine 01/05/2018 12:45 PM SOFTWARE CONFIGURATION SPECIALIST POC GLUCOSE Routine 01/05/2018 7:42 AM SOFTWARE CONFIGURATION SPECIALIST ESTIMATED GFR Routine 01/05/2018 3:54 AM SOFTWARE CONFIGURATION SPECIALIST PHOSPHORUS LEVEL Routine 01/05/2018 3:54 AM SOFTWARE CONFIGURATION SPECIALIST MAGNESIUM LEVEL Routine 01/05/2018 3:54 AM SOFTWARE CONFIGURATION SPECIALIST BASIC METABOLIC PANEL Routine 01/05/2018 3:54 AM SOFTWARE CONFIGURATION SPECIALIST POC GLUCOSE Routine 01/05/2018 3:22 AM SOFTWARE CONFIGURATION SPECIALIST POC GLUCOSE Routine 01/04/2018 11:17 PM SOFTWARE CONFIGURATION SPECIALIST POC GLUCOSE Routine 01/04/2018 8:11 PM SOFTWARE CONFIGURATION SPECIALIST POC GLUCOSE Routine 01/04/2018 4:51 PM SOFTWARE CONFIGURATION SPECIALIST POC GLUCOSE Routine 01/04/2018 1:17 PM SOFTWARE CONFIGURATION SPECIALIST POC GLUCOSE Routine 01/04/2018 8:37 AM SOFTWARE CONFIGURATION SPECIALIST POC GLUCOSE Routine 01/04/2018 5:29 AM SOFTWARE CONFIGURATION SPECIALIST POC GLUCOSE Routine 01/04/2018 12:02 AM SOFTWARE CONFIGURATION SPECIALIST POC GLUCOSE Routine 01/03/2018 8:57 PM SOFTWARE CONFIGURATION SPECIALIST POC GLUCOSE Routine 01/03/2018 5:22 PM SOFTWARE CONFIGURATION SPECIALIST POC GLUCOSE Routine 01/03/2018 11:57 AM SOFTWARE CONFIGURATION SPECIALIST POC GLUCOSE Routine 01/03/2018 7:47 AM SOFTWARE CONFIGURATION SPECIALIST POC GLUCOSE Routine 01/03/2018 6:23 AM SOFTWARE CONFIGURATION SPECIALIST HC COMPLETE BLD COUNT Routine 01/03/2018 W/AUTO DIFF 4:45 AM SOFTWARE CONFIGURATION SPECIALIST ESTIMATED GFR Routine 01/03/2018 4:00 AM SOFTWARE CONFIGURATION SPECIALIST BASIC METABOLIC PANEL Routine 01/03/2018 4:00 AM SOFTWARE CONFIGURATION SPECIALIST POC GLUCOSE Routine 01/03/2018 1:45 AM SOFTWARE CONFIGURATION SPECIALIST POC GLUCOSE Routine 01/02/2018 9:25 PM SOFTWARE CONFIGURATION SPECIALIST POC GLUCOSE Routine 01/02/2018 5:49 PM SOFTWARE CONFIGURATION SPECIALIST POC GLUCOSE Routine 01/02/2018 12:47 PM SOFTWARE CONFIGURATION SPECIALIST MAGNESIUM LEVEL Routine 01/02/2018 8:22 AM SOFTWARE CONFIGURATION SPECIALIST PHOSPHORUS LEVEL Routine 01/02/2018 8:22 AM SOFTWARE CONFIGURATION SPECIALIST ESTIMATED GFR Routine 01/02/2018 8:22 AM SOFTWARE CONFIGURATION SPECIALIST BASIC METABOLIC PANEL Routine 01/02/2018 8:22 AM SOFTWARE CONFIGURATION SPECIALIST HC COMPLETE BLD COUNT Routine 01/02/2018 W/AUTO DIFF 8:22 AM SOFTWARE CONFIGURATION SPECIALIST POC GLUCOSE Routine 01/02/2018 7:52 AM SOFTWARE CONFIGURATION SPECIALIST POC GLUCOSE Routine 01/02/2018 3:26 AM SOFTWARE CONFIGURATION SPECIALIST POC GLUCOSE Routine 01/01/2018 10:48 PM SOFTWARE CONFIGURATION SPECIALIST XR ABDOMEN 1 VW PORTABLE STAT 01/01/2018 6:50 PM SOFTWARE CONFIGURATION SPECIALIST POC GLUCOSE Routine 01/01/2018 5:24 PM SOFTWARE CONFIGURATION SPECIALIST ECG 12-LEAD STAT 01/01/2018 3:26 PM SOFTWARE CONFIGURATION SPECIALIST TROPONIN STAT 01/01/2018 3:00 PM SOFTWARE CONFIGURATION SPECIALIST POC GLUCOSE Routine 01/01/2018 2:37 PM SOFTWARE CONFIGURATION SPECIALIST POC GLUCOSE Routine 01/01/2018 12:06 PM SOFTWARE CONFIGURATION SPECIALIST POC GLUCOSE Routine 01/01/2018 8:29 AM SOFTWARE CONFIGURATION SPECIALIST CBC WITH PLATELET AND Routine 01/01/2018 DIFFERENTIAL 5:00 AM SOFTWARE CONFIGURATION SPECIALIST ESTIMATED GFR Routine 01/01/2018 4:00 AM SOFTWARE CONFIGURATION SPECIALIST BASIC METABOLIC PANEL Routine 01/01/2018 4:00 AM SOFTWARE CONFIGURATION SPECIALIST PHOSPHORUS LEVEL Routine 01/01/2018 4:00 AM SOFTWARE CONFIGURATION SPECIALIST MAGNESIUM LEVEL Routine 01/01/2018 4:00 AM SOFTWARE CONFIGURATION SPECIALIST POC GLUCOSE Routine 01/01/2018 1:55 AM SOFTWARE CONFIGURATION SPECIALIST POC GLUCOSE Routine 12/31/2017 9:58 PM SOFTWARE CONFIGURATION SPECIALIST POC GLUCOSE Routine 12/31/2017 6:34 PM SOFTWARE CONFIGURATION SPECIALIST POC GLUCOSE Routine 12/31/2017 2:58 PM SOFTWARE CONFIGURATION SPECIALIST URINALYSIS SCREEN AND Routine 12/31/2017 MICROSCOPY, WITH REFLEX 2:40 PM SOFTWARE CONFIGURATION SPECIALIST TO CULTURE URINE CULTURE Routine 12/31/2017 2:10 PM SOFTWARE CONFIGURATION SPECIALIST GRAM STAIN Routine 12/31/2017 2:10 PM SOFTWARE CONFIGURATION SPECIALIST PHOSPHORUS LEVEL Routine 12/31/2017 1:11 PM SOFTWARE CONFIGURATION SPECIALIST MAGNESIUM LEVEL Routine 12/31/2017 1:11 PM SOFTWARE CONFIGURATION SPECIALIST TRIGLYCERIDES Routine 12/31/2017 1:11 PM SOFTWARE CONFIGURATION SPECIALIST ESTIMATED GFR Routine 12/31/2017 1:11 PM SOFTWARE CONFIGURATION SPECIALIST BASIC METABOLIC PANEL Routine 12/31/2017 1:11 PM SOFTWARE CONFIGURATION SPECIALIST HC COMPLETE BLD COUNT Routine 12/31/2017 W/AUTO DIFF 1:08 PM SOFTWARE CONFIGURATION SPECIALIST B NATRIURETIC PEPTIDE Routine 12/31/2017 1:08 PM SOFTWARE CONFIGURATION SPECIALIST POC GLUCOSE Routine 12/31/2017 11:56 AM SOFTWARE CONFIGURATION SPECIALIST B NATRIURETIC PEPTIDE Routine 12/31/2017 11:23 AM SOFTWARE CONFIGURATION SPECIALIST POC GLUCOSE Routine 12/31/2017 11:07 AM SOFTWARE CONFIGURATION SPECIALIST BASIC METABOLIC PANEL Routine 12/31/2017 10:07 AM SOFTWARE CONFIGURATION SPECIALIST XR CHEST 1 VW PORTABLE STAT 12/31/2017 9:33 AM SOFTWARE CONFIGURATION SPECIALIST POC GLUCOSE Routine 12/31/2017 7:31 AM SOFTWARE CONFIGURATION SPECIALIST CBC WITH PLATELET AND Routine 12/31/2017 DIFFERENTIAL 5:33 AM SOFTWARE CONFIGURATION SPECIALIST POC GLUCOSE Routine 12/31/2017 5:14 AM SOFTWARE CONFIGURATION SPECIALIST BASIC METABOLIC PANEL Routine 12/31/2017 4:00 AM SOFTWARE CONFIGURATION SPECIALIST TRIGLYCERIDES Routine 12/31/2017 4:00 AM SOFTWARE CONFIGURATION SPECIALIST PHOSPHORUS LEVEL Routine 12/31/2017 4:00 AM SOFTWARE CONFIGURATION SPECIALIST MAGNESIUM LEVEL Routine 12/31/2017 4:00 AM SOFTWARE CONFIGURATION SPECIALIST POC GLUCOSE Routine 12/31/2017 2:20 AM SOFTWARE CONFIGURATION SPECIALIST POC GLUCOSE Routine 12/30/2017 10:02 PM SOFTWARE CONFIGURATION SPECIALIST POTASSIUM LEVEL Timed 12/30/2017 9:00 PM SOFTWARE CONFIGURATION SPECIALIST POC GLUCOSE Routine 12/30/2017 5:28 PM SOFTWARE CONFIGURATION SPECIALIST POC GLUCOSE Routine 12/30/2017 1:05 PM SOFTWARE CONFIGURATION SPECIALIST PHOSPHORUS LEVEL Routine 12/30/2017 6:45 AM SOFTWARE CONFIGURATION SPECIALIST MAGNESIUM LEVEL Routine 12/30/2017 6:45 AM SOFTWARE CONFIGURATION SPECIALIST ESTIMATED GFR Routine 12/30/2017 6:45 AM SOFTWARE CONFIGURATION SPECIALIST BASIC METABOLIC PANEL Routine 12/30/2017 6:45 AM SOFTWARE CONFIGURATION SPECIALIST ESTIMATED GFR Routine 12/30/2017 6:00 AM SOFTWARE CONFIGURATION SPECIALIST COMPREHENSIVE METABOLIC Routine 12/30/2017 PANEL 6:00 AM SOFTWARE CONFIGURATION SPECIALIST HC COMPLETE BLD COUNT Routine 12/30/2017 W/AUTO DIFF 6:00 AM SOFTWARE CONFIGURATION SPECIALIST POC GLUCOSE Routine 12/30/2017 5:09 AM SOFTWARE CONFIGURATION SPECIALIST POC GLUCOSE Routine 12/30/2017 5:01 AM SOFTWARE CONFIGURATION SPECIALIST HC COMPLETE BLD COUNT Routine 12/30/2017 W/AUTO DIFF 5:00 AM SOFTWARE CONFIGURATION SPECIALIST MAGNESIUM LEVEL Routine 12/30/2017 4:00 AM SOFTWARE CONFIGURATION SPECIALIST PHOSPHORUS LEVEL Routine 12/30/2017 4:00 AM SOFTWARE CONFIGURATION SPECIALIST TRIGLYCERIDES Routine 12/30/2017 4:00 AM SOFTWARE CONFIGURATION SPECIALIST BASIC METABOLIC PANEL Routine 12/30/2017 4:00 AM SOFTWARE CONFIGURATION SPECIALIST ARTERIAL LINE Routine 12/29/2017 2:22 PM SOFTWARE CONFIGURATION SPECIALIST Procedure Note - Edmar Mota MD - 12/29/2017 2:22 PM SOFTWARE CONFIGURATION SPECIALIST Arterial line Performed by: Edmar Mota MD Authorized by: Edmar Mota MD Patient location: OR. Staff: Anesthesio logist: Edmar Mota MD Performed by: Anesthesio logisserge Pre-proced ure: patient identified , IV checked, site and side verified, risks and benefits discussed, procedure verified, surgical consent complete, patient position confirmed, monitors and equipment checked and pre-op evaluation complete MSBT: antiseptic used, all elements of maximal sterile barrier technique followed, hand hygiene performed, cap/gown used by other personnel and solutions labeled Indication s: Indication s: hemodynami c monitoring Anesthesia : Anesthesia : General Procedure Details: Arterial Line placement: Placed post induction Line placement site: Axillary Line placement side: Right Arterial line gauge: 20 G Number of attempts: 1 Ultrasound guidance used: Yes Post-proc edure: Post-proce dure: Sterile dressing applied and line sutured Post procedure circulatio n, sensation, movement: Normal Patient tolerance: Patient tolerated the procedure well with no immediate complicati ons IA AN ELECTIVE Routine 12/29/2017 ENDOTRACHEAL AIRWAY 2:09 PM SOFTWARE CONFIGURATION SPECIALIST Procedure Note - Edmar Mota MD - 12/29/2017 2:09 PM SOFTWARE CONFIGURATION SPECIALIST ANESTHESIA INTUBATION Performed by: Edmar Mota MD Authorized by: Edmar Mota MD Location: OR Urgency: Elective Difficult Airway: No Anesthesio logist: Edmar Mota MD Performed by: anesthesio logist Preoxygena raman with 100% O2: Yes Mask Ventilatio n: Not attempted Final Airway Type: Endotrache al airway Final Endotrache al Airway: ETT Cuffed: Yes Technique Used: Direct laryngosco py Insertion Site: Oral Blade Type: Ean Laryngosco pe Blade/Vide olaryngosc ope Blade Size: 3 ETT Size (mm): 7.0 Cuff at minimum occlusion pressure: Yes Measured from: Lips ETT to Lips (cm): 22 Placement Verified by: CO2 detection, direct visualizat ion and equal breath sounds Laryngosco pic view: Grade I - full view of glottis Rapid Sequence Induction (RSI): Yes Number of Attempts at Approach: 1 XR PICC CHEST PORTABLE Routine 12/29/2017 Hip fx, left, closed, 11:33 AM SOFTWARE CONFIGURATION SPECIALIST initial encounter (HCC) LAPAROTOMY, EXPLORATORY 12/29/2017 small bowel obstruction 11:30 AM SOFTWARE CONFIGURATION SPECIALIST HC CATH DUAL LUMEN PICC Routine 12/29/2017 11:24 AM SOFTWARE CONFIGURATION SPECIALIST HC US GUIDED VASCULAR Routine 12/29/2017 ACCESS 11:24 AM SOFTWARE CONFIGURATION SPECIALIST HC CVL PICC INSERT 5 YRS Routine 12/29/2017 OR > W/O IMG GUID 11:24 AM SOFTWARE CONFIGURATION SPECIALIST TYPE AND SCREEN Routine 12/29/2017 5:30 AM SOFTWARE CONFIGURATION SPECIALIST US DUPLEX VENOUS UPPER Routine 12/28/2017 EXTREMITY RIGHT 2:33 PM SOFTWARE CONFIGURATION SPECIALIST XR ABDOMEN 1 VW Routine 12/28/2017 2:03 [address] [employer] [address] ABDOMEN PELVIS WO STAT 12/28/2017 CONTRAST 1:53 PM SOFTWARE CONFIGURATION SPECIALIST ESTIMATED GFR Routine 12/28/2017 4:50 AM SOFTWARE CONFIGURATION SPECIALIST HC COMPLETE BLD COUNT Routine 12/28/2017 W/AUTO DIFF 4:50 AM SOFTWARE CONFIGURATION SPECIALIST BASIC METABOLIC PANEL Routine 12/28/2017 4:50 AM SOFTWARE CONFIGURATION SPECIALIST XR ABDOMEN 1 VW PORTABLE Routine 12/27/2017 4:58 PM SOFTWARE CONFIGURATION SPECIALIST ESTIMATED GFR Routine 12/27/2017 5:19 AM SOFTWARE CONFIGURATION SPECIALIST BASIC METABOLIC PANEL Routine 12/27/2017 5:19 AM SOFTWARE CONFIGURATION SPECIALIST HEMOGLOBIN & HEMATOCRIT Routine 12/27/2017 4:20 AM SOFTWARE CONFIGURATION SPECIALIST ECHOCARDIOGRAM 2D Routine 12/26/2017 COMPLETE W MMODE SPECTRAL 9:40 PM SOFTWARE CONFIGURATION SPECIALIST COLOR DOPPLER (60070) POC GLUCOSE Routine 12/26/2017 9:22 PM SOFTWARE CONFIGURATION SPECIALIST XR PELVIS 1 OR 2 VW STAT 12/26/2017 5:27 PM SOFTWARE CONFIGURATION SPECIALIST SURGICAL PATHOLOGY Routine 12/26/2017 REQUEST 4:57 PM SOFTWARE CONFIGURATION SPECIALIST XR PELVIS 1 OR 2 VW Routine 12/26/2017 4:24 PM SOFTWARE CONFIGURATION SPECIALIST ARTERIAL LINE Routine 12/26/2017 4:10 PM SOFTWARE CONFIGURATION SPECIALIST Procedure Note - Olivia Whiteside MD - 12/26/2017 4:10 PM SOFTWARE CONFIGURATION SPECIALIST Arterial line Performed by: Olivia Whiteside MD Authorized by: Olivia Whiteside MD Start Time: 12/26/2017 3:00 PM End Time: 12/26/2017 3:20 PM Staff: Anesthesio logist: Olivia Whiteside MD Performed by: Anesthesio logist Pre-proced ure: patient identified , IV checked, site and side verified, risks and benefits discussed, procedure verified, surgical consent complete, patient position confirmed, monitors and equipment checked and pre-op evaluation complete MSBT: antiseptic used, all elements of maximal sterile barrier technique followed, hand hygiene performed and cap/gown used by other personnel TIme Out Performed: 8 3:00 PM Indication s: Indication s: hemodynami c monitoring Anesthesia : Anesthesia : General Procedure Details: Arterial Line placement: Placed post induction Line placement site: Brachial Line placement side: Left Arterial line gauge: 20 G Number of attempts: 4 Ultrasound guidance used: Yes Post-proc edure: Post-proce dure: Sterile dressing applied Patient tolerance: Patient tolerated the procedure well with no immediate complicati ons IA AN ELECTIVE Routine 12/26/2017 ENDOTRACHEAL AIRWAY 3:58 PM SOFTWARE CONFIGURATION SPECIALIST Procedure Note - Db Calle CRNA - 12/26/2017 3:58 PM SOFTWARE CONFIGURATION SPECIALIST ANESTHESIA INTUBATION Date/Time: 12/26/2017 3:17 AM Performed by: Db Calle CRNA Authorized by: Olivia Whiteside MD Location: OR Urgency: Elective Difficult Airway: No Anesthesio logist: Olivia Whiteside MD Resident/C RNA/AA: Db Calle CRNA Performed by: resident/C RNA/AA Preoxygena raman with 100% O2: Yes C-spine Precaution s Maintained Throughout : Yes Mask Ventilatio n: Not attempted Final Airway Type: Endotrache al airway Final Endotrache al Airway: ETT Cuffed: Yes Technique Used: Direct laryngosco py Devices/Me thods Used in Placement: Intubatin g stylet Insertion Site: Oral Blade Type: [place] Laryngosco pe Blade/Vide olaryngosc ope Blade Size: 2 ETT Size (mm): 7.0 Cuff at minimum occlusion pressure: Yes Measured from: Lips ETT to Lips (cm): 22 Placement Verified by: CO2 detection, direct visualizat ion and equal breath sounds Laryngosco pic view: Grade I - full view of glottis Rapid Sequence Induction (RSI): Yes Number of Attempts at Approach: 1 RSI with cricoid pressure held throughout until confirmati on of tube placement Medication s Administer ed Rocuronium (ZEMURON), 10 mg succinylch oline (ANECTINE) , 120 mg REVISION, ARTHROPLASTY, 12/26/2017 Closed fracture of left HIP 3:25 PM SOFTWARE CONFIGURATION SPECIALIST hip, initial encounter (HCC) Special Needs TF POC GLUCOSE Routine 12/26/2017 9:52 AM SOFTWARE CONFIGURATION SPECIALIST POC GLUCOSE Routine 12/26/2017 5:29 AM SOFTWARE CONFIGURATION SPECIALIST ESTIMATED GFR Routine 12/26/2017 4:00 AM SOFTWARE CONFIGURATION SPECIALIST MAGNESIUM LEVEL Routine 12/26/2017 4:00 AM SOFTWARE CONFIGURATION SPECIALIST BASIC METABOLIC PANEL Routine 12/26/2017 4:00 AM SOFTWARE CONFIGURATION SPECIALIST ESTIMATED GFR Routine 12/26/2017 3:40 AM SOFTWARE CONFIGURATION SPECIALIST PROTHROMBIN TIME WITH INR Routine 12/26/2017 3:40 AM SOFTWARE CONFIGURATION SPECIALIST PHOSPHORUS LEVEL Routine 12/26/2017 3:40 AM SOFTWARE CONFIGURATION SPECIALIST MAGNESIUM LEVEL Routine 12/26/2017 3:40 AM SOFTWARE CONFIGURATION SPECIALIST BASIC METABOLIC PANEL Routine 12/26/2017 3:40 AM SOFTWARE CONFIGURATION SPECIALIST HC COMPLETE BLD COUNT Routine 12/26/2017 W/AUTO DIFF 3:40 AM SOFTWARE CONFIGURATION SPECIALIST TYPE AND SCREEN Routine 12/26/2017 3:40 AM SOFTWARE CONFIGURATION SPECIALIST B NATRIURETIC PEPTIDE Routine 12/26/2017 3:40 AM SOFTWARE CONFIGURATION SPECIALIST CBC WITH PLATELET AND Routine 12/26/2017 DIFFERENTIAL 3:40 AM SOFTWARE CONFIGURATION SPECIALIST POC GLUCOSE Routine 12/25/2017 9:26 PM SOFTWARE CONFIGURATION SPECIALIST POC GLUCOSE Routine 12/25/2017 4:03 PM SOFTWARE CONFIGURATION SPECIALIST XR ABDOMEN 1 VW PORTABLE Routine 12/25/2017 3:23 PM SOFTWARE CONFIGURATION SPECIALIST XR CHEST 1 VW PORTABLE Routine 12/25/2017 3:22 PM SOFTWARE CONFIGURATION SPECIALIST POC GLUCOSE Routine 12/25/2017 12:07 PM SOFTWARE CONFIGURATION SPECIALIST POC GLUCOSE Routine 12/25/2017 7:55 AM SOFTWARE CONFIGURATION SPECIALIST XR CHEST 1 VW PORTABLE STAT 12/25/2017 6:44 AM SOFTWARE CONFIGURATION SPECIALIST POC GLUCOSE Routine 12/25/2017 5:16 AM SOFTWARE CONFIGURATION SPECIALIST ESTIMATED GFR Routine 12/25/2017 5:08 AM SOFTWARE CONFIGURATION SPECIALIST BASIC METABOLIC PANEL Routine 12/25/2017 5:08 AM SOFTWARE CONFIGURATION SPECIALIST URINALYSIS SCREEN AND Routine 12/25/2017 MICROSCOPY, WITH REFLEX 4:45 AM SOFTWARE CONFIGURATION SPECIALIST TO CULTURE GRAM STAIN Routine 12/25/2017 4:45 AM SOFTWARE CONFIGURATION SPECIALIST URINE CULTURE Routine 12/25/2017 4:45 AM SOFTWARE CONFIGURATION SPECIALIST POC GLUCOSE Routine 12/25/2017 4:12 AM SOFTWARE CONFIGURATION SPECIALIST B NATRIURETIC PEPTIDE Routine 12/25/2017 4:00 AM SOFTWARE CONFIGURATION SPECIALIST CBC HEMOGRAM Routine 12/25/2017 4:00 AM SOFTWARE CONFIGURATION SPECIALIST XR HIP 2-3 VIEWS LEFT STAT 12/25/2017 12:11 AM SOFTWARE CONFIGURATION SPECIALIST XR FEMUR 2 VW LEFT STAT 12/25/2017 12:10 AM SOFTWARE CONFIGURATION SPECIALIST XR PELVIS 1 OR 2 VW STAT 12/25/2017 12:10 AM SOFTWARE CONFIGURATION SPECIALIST XR KNEE 1 OR 2 VW LEFT STAT 12/25/2017 12:10 AM SOFTWARE CONFIGURATION SPECIALIST POC GLUCOSE Routine 12/25/2017 12:02 AM SOFTWARE CONFIGURATION SPECIALIST ECG 12-LEAD Routine 12/24/2017 10:16 PM SOFTWARE CONFIGURATION SPECIALIST XR ABDOMEN 1 VW PORTABLE Routine 12/24/2017 9:55 PM SOFTWARE CONFIGURATION SPECIALIST after 03/02/2017 Results * XR Hip 2-3 View Left (02/22/2018 9:58 AM SOFTWARE CONFIGURATION SPECIALIST) Only the most recent of 3 results within the time period is included. Narrative Performed At [facility] Hip radiographs demonstrate subsidence of the femoral component status post THR. Performing Organization Address City/State/[place] [address] * POC glucose (01/10/2018 11:29 AM SOFTWARE CONFIGURATION SPECIALIST) Only the most recent of 82 results within the time period is included. POC glucose 127 (H) 65 - 99 mg/dL [facility] Comment: [employer] Notified RN Meter ID: [id number] Professor Of Floriculture: Zi Grijalva Performing Organization Address City/[facility] Phone Number [facility] [address] PATHOLOGY AND GENOMIC MEDICINE [address] * Estimated GFR (01/10/2018 4:00 AM SOFTWARE CONFIGURATION SPECIALIST) Only the most recent of 15 results within the time period is included. Estimated GFR 69 mL/min/1.73 m2 [facility] Comment: [facility] CatergoryUnitsInt rpretation G1 >=90 Normal or high G2 60-89Mildly decreased [id number] Mildly to moderately decreased [id number] Moderately to severely decreased G4 15-29Severely decreased G5 <15Kidney failure The eGFR was calculated using the Chronic Kidney Disease Epidemiology Collaboration (CKD-EPI) equation. Interpretation is based on recommendations of the National Kidney Foundation-Kidney Disease Outcomes Quality Initiative (NKF-KDOQI) published in 2014. Specimen Plasma specimen Performing Organization Address City/[facility] Cent[facility]ode Phone Number [facility] [place] [address] PATHOLOGY AND [facility] MEDICINE [address] * CBC with platelet and differential (01/10/2018 4:00 AM SOFTWARE CONFIGURATION SPECIALIST) Only the most recent of 13 results within the time period is included. WBC 8.59 4.50 - 11.00 k/uL [facility] RBC 2.97 (L) 4.20 - 5.50 m/uL [facility] HGB 9.4 (L) 12.0 - 16.0 g/dL [facility] HCT 28.5 (L) 37.0 - 47.0 % [facility] MCV 96.0 82.0 - 100.0 fL [facility] MCH 31.6 27.0 - 34.0 pg [facility] MCHC 33.0 31.0 - 37.0 g/dL [facility] RDW - SD 54.4 37.0 - 55.0 fL [facility] MPV 11.7 8.8 - 13.2 fL [facility] Platelet count 210 150 - 400 k/uL [facility] Nucleated RBC 0.00 /100 WBC [facility] Neutrophils 61.4 39.0 - 69.0 % [facility] Lymphocytes 16.5 (L) 25.0 - 45.0 % [facility] Monocytes 19.8 (H) 0.0 - 10.0 % [facility] Eosinophils 1.2 0.0 - 5.0 % [facility] Basophils 0.3 0.0 - 1.0 % [facility] Immature granulocytes 0.8Comment: "Immature 0.0 - 1.0 % [facility] granulocytes" (promyelocytes, HOSPITAL myelocytes, metamyelocytes) Specimen Blood Performing Organization Address City/[facility]ode Phone Number [facility] [place] [address] PATHOLOGY AND GENOMIC MEDICINE [address] * B natriuretic peptide (01/10/2018 4:00 AM SOFTWARE CONFIGURATION SPECIALIST) Only the most recent of 5 results within the time period is included. BNP 104 (H) 0 - 100 pg/mL [facility] Specimen Blood Performing Organization Address City/[facility]ode Phone Number [facility] [place] [address] PATHOLOGY AND GENOMIC MEDICINE [address] * Basic metabolic panel (01/10/2018 4:00 AM SOFTWARE CONFIGURATION SPECIALIST) Only the most recent of 17 results within the time period is included. Sodium 138 135 - 148 mEq/L [facility] Potassium 4.1 3.5 - 5.0 mEq/L [facility] Chloride 103 98 - 112 mEq/L [facility] CO2 24 24 - 31 mEq/L [facility] Anion gap 11@ANIO 7 - 15 mEq/L [facility] BUN 20 8 - 23 mg/dL [facility] Creatinine 0.78 0.50 - 0.90 mg/dL [facility] Glucose 128 (H) 65 - 99 mg/dL [facility] Calcium 8.4 (L) 8.8 - 10.2 mg/dL [facility] Specimen Plasma specimen Performing Organization Address City/[facility]/Zipcode Phone Number [facility] DEPARTMENT OF [address] [place] [address] PATHOLOGY AND GENOMIC MEDICINE [address] * Crystal analysis (01/09/2018 6:02 PM SOFTWARE CONFIGURATION SPECIALIST) Crystal analysis specimen KneeComment: Right knee joint [facility]OSPITAL Monosodium urate None seen None seen [facility] CPPD crystals PresentComment: Intracellular None seen [facility] and extracellular [facility] Specimen Fluid Performing Organization Address City/[facility] Centercode Phone Number [facility] [place] [address] PATHOLOGY AND GENOMIC MEDICINE [address] * Cell count and differential, body fluid (01/09/2018 6:02 PM SOFTWARE CONFIGURATION SPECIALIST) [facility] fluid type Unknown [facility] Color, fluid Lucas [facility] Appearance, fluid Hazy [facility] RBC, fluid 21,000 /CMM [facility] Nucleated cells, fluid 6,430 /CMM [facility] Fluid mononuclear cell See Diff [facility] Neutrophils, fluid 89 % [facility] Macrophages, fluid 11 % [facility] Specimen Fluid Performing Organization Address City/[facility]ercowv Phone Number [facility] DEPARTMENT OF [address] [place] [address] PATHOLOGY AND GENOMIC MEDICINE [address] * XR Knee 1 Or 2 Vw Right (01/09/2018 5:55 PM SOFTWARE CONFIGURATION SPECIALIST) Narrative Performed At EXAMINATION:XR KNEE 1 OR 2 VW RIGHT [facility] CLINICAL HISTORY:severe left knee pain with movement. please do portable COMPARISON:None IMPRESSION: 1.No acute fracture or dislocation is seen. 2.There is severe chronic arthritis in the knee, primarily involving the lateral tibiofemoral compartment. There is direct bone to bone contact, articular surface irregularity and sclerosis, and prominent osteophyte formation. Mild to moderate degenerative type arthritic changes are present in the medial and patellofemoral compartments. 3.There is chondrocalcinosis. 4.A small suprapatellar joint effusion is present. [id number] Procedure Note Hm Interface, Radiology Results Incoming - 01/09/2018 6:05 PM SOFTWARE CONFIGURATION SPECIALIST EXAMINATION: XR KNEE 1 OR 2 VW RIGHT CLINICAL HISTORY: severe left knee pain with movement. please do portable COMPARISON: None IMPRESSION: 1. No acute fracture or dislocation is seen. 2. There is severe chronic arthritis in the knee, primarily involving the lateral tibiofemoral compartment. There is direct bone to bone contact, articular surface irregularity and sclerosis, and prominent osteophyte formation. Mild to moderate degenerative type arthritic changes are present in the medial and patellofemoral compartments. 3. There is chondrocalcinosis. 4. A small suprapatellar joint effusion is present. [id number] Performing Organization Address [facility]/[place] [address] * Joint fluid culture (01/09/2018 5:23 PM SOFTWARE CONFIGURATION SPECIALIST) Joint fluid culture No growth after 4 days. [facility] isolate Comment: HOSPITAL Specimen Information Specimen Source: Joint Fluid Specimen Site: Right Knee Specimen Joint fluid Performing Organization Address [facility]ercowv Phone Number [facility] DEPARTMENT OF [address] [place] [address] PATHOLOGY AND GENOMIC MEDICINE [address] * Gram stain (01/09/2018 5:23 PM SOFTWARE CONFIGURATION SPECIALIST) Only the most recent of 3 results within the time period is included. Gram stain isolate Many WBC's [facility] No organisms seen HOSPITAL Comment: Specimen Information Specimen Source: Joint Fluid Specimen Site: Right Knee Specimen Joint fluid Performing Organization Address [facility]ercode Phone Number [facility] DEPARTMENT OF [address] [place] [address] PATHOLOGY AND GENOMIC MEDICINE [address] * Anaerobic culture (01/09/2018 5:23 PM SOFTWARE CONFIGURATION SPECIALIST) Anaerobic culture isolate No anaerobic organisms [facility] isolated. HOSPITAL Comment: Specimen Information Specimen Source: Joint Fluid Specimen Site: Right Knee Specimen Joint fluid Performing Organization Address City/[facility]/Zipcode Phone Number [facility] DEPARTMENT OF [address] [place] [address] PATHOLOGY [place] [address] HOSPITAL * Prepare RBC, 1 Units (01/08/2018 6:19 AM SOFTWARE CONFIGURATION SPECIALIST) Only the most recent of 2 results within the time period is included. Product name Red Blood Cells -1, Leukored [facility] Unit number [id number] [facility] Product code [id number] [facility] Dispense status Transfused [facility] Blood expiration date [id number] [facility] Blood type code 7300 [facility] Blood type B POSITIVE [facility] Performing Organization Address City/[facility] Phone Number [facility] DEPARTMENT OF [address] [place] [address] PATHOLOGY AND [facility] MEDICINE [address] * Type and screen (01/08/2018 6:19 AM SOFTWARE CONFIGURATION SPECIALIST) Only the most recent of 3 results within the time period is included. ABO grouping B [facility] Rh type POS [facility] Antibody screen (gel) NEG [facility] Specimen Blood Performing Organization Address City/[facility] Phone Number [facility] DEPARTMENT OF [address] [place] [address] PATHOLOGY AND [facility] MEDICINE [address] * Smear review (01/08/2018 3:40 AM SOFTWARE CONFIGURATION SPECIALIST) Platelet slide review Cristian adequate [facility] Anisocytosis Moderate [facility] Polychromasia Moderate [facility] Ovalocytes Moderate [facility] Performing Organization Address City/[facility] Phone Number [facility] DEPARTMENT OF [address] [place] [address] PATHOLOGY AND GENOMIC MEDICINE [address] * Magnesium level (01/07/2018 12:00 AM SOFTWARE CONFIGURATION SPECIALIST) Only the most recent of 10 results within the time period is included. Magnesium 2.0 1.6 - 2.4 mg/dL [facility] Specimen Plasma specimen Performing Organization Address City/[facility] Phone Number [facility] DEPARTMENT OF [address] [place] [address] PATHOLOGY AND GENOMIC MEDICINE [address] * Phosphorus level (01/05/2018 3:54 AM SOFTWARE CONFIGURATION SPECIALIST) Only the most recent of 8 results within the time period is included. Phosphorus 4.0 2.4 - 4.5 mg/dL [facility] Specimen Plasma specimen Performing Organization Address City/[facility]/Zipcode Phone Number [facility] DEPARTMENT OF [address] [place] [address] PATHOLOGY AND GENOMIC MEDICINE [address] [address] [facility] * XR Abdomen 1 Vw Portable (01/01/2018 6:50 PM SOFTWARE CONFIGURATION SPECIALIST) Only the most recent of 4 results within the time period is included. Narrative Performed At EXAMINATION:XR ABDOMEN 1 VW PORTABLE [facility] CLINICAL HISTORY:Abd painunspecified COMPARISON:12/28/2017 IMPRESSION: 1.The patient is undergone midline laparotomy. Small bowel obstruction noted on the previous study has largely resolved. A nasogastric tube extends into the stomach. 2.There is volume loss at the left lung base with tiny bilateral pleural effusions. 3.Status post left hip arthroplasty. [facility]-[id number] Procedure Note Interface, Radiology Results Incoming - 01/01/2018 7:10 PM SOFTWARE CONFIGURATION SPECIALIST EXAMINATION: XR ABDOMEN 1 VW PORTABLE CLINICAL HISTORY: Abd pain unspecified COMPARISON: 12/28/2017 IMPRESSION: 1. The patient is undergone midline laparotomy. Small bowel obstruction noted on the previous study has largely resolved. A nasogastric tube extends into the stomach. 2. There is volume loss at the left lung base with tiny bilateral pleural effusions. 3. Status post left hip arthroplasty. [facility]-[id number] Performing Organization Address City/[facility] Centercode Phone Number [facility] [address] [place] [address] * ECG 12 lead (01/01/2018 3:26 PM SOFTWARE CONFIGURATION SPECIALIST) Only the most recent of 2 results within the time period is included. Ventricular rate 76 [facility] Atrial rate 76 [facility] IA interval 124 [facility] QRSD interval 104 [facility] QT interval 434 [facility] QTC interval 488 [facility] P axis 1 58 [facility] QRS axis 1 51 [facility] T wave axis 223 [facility] EKG impression Sinus rhythm with premature [facility] MUSE atrial complexes-ST & T wave abnormality, consider inferior ischemia-ST & T wave abnormality, consider anterolateral ischemia-Prolonged QT-Abnormal ECG-In automated comparison with ECG of 24-DEC-2017 22:16,-T wave inversion more evident in Inferior leads-T wave inversion now evident in Anterolateral leads- Narrative Performed At Performing Organization Address City/State/Zipcode Phone Number [facility] MUSE [address] [place] [address] * Troponin (01/01/2018 3:00 PM SOFTWARE CONFIGURATION SPECIALIST) Troponin <0.30 0.00 - 0.30 ng/mL [facility] Comment: HOSPITAL 0.30 - 1.49 ng/mlMay indicate increased risk of acute coronary syndrome. >=1.5 ng/ml Consistent with acute myocardial infarction. The diagnostic value of a single normal or non-diagnostic result is questionable.Serial samples at 2-6 hour intervals are required to rule out acute myocardial injury. Specimen Plasma specimen Performing Organization Address [facility]ode Phone Number [facility] DEPARTMENT OF [address] [place] [address] PATHOLOGY AND GENOMIC MEDICINE [address] * Urinalysis screen and microscopy, with reflex to culture (12/31/2017 2:40 PM SOFTWARE CONFIGURATION SPECIALIST) Only the most recent of 2 results within the time period is included. Specimen site Clean catch [facility] Color, UA Yellow [facility] Appearance, UA Clear [facility] Specific gravity, UA 1.029 1.001 - 1.035 [facility] pH, UA 5.0 5.0 - 8.5 [facility] Protein, UA 1+ (A) Negative [facility] Glucose, UA 1+ (A) Negative [facility] Ketones, UA Negative Negative [facility] Bilirubin, UA Negative Negative [facility] Blood, UA Negative Negative [facility] Nitrite, UA Negative Negative [facility] Urobilinogen, UA <2.0 <2.0 [facility] Leukocyte esterase, UA Trace (A) Negative [facility] Epithelial cells, UA <1 /HPF [facility] Round epithelial cells, 2 (H) 0 - 1 /HPF [facility] WBC, UA 4 0 - 4 /HPF [facility] RBC, UA <1 0 - 5 /HPF [facility] Bacteria, UA Few None seen [facility] Yeast, UA None seen [facility] Yeast with pseudohyphae, None seen [facility] Specimen Urine Performing Organization Address City/[facility]/Zipcode Phone Number [facility] [address] PATHOLOGY AND GENOMIC MEDICINE [address] * Urine culture (12/31/2017 2:10 PM SOFTWARE CONFIGURATION SPECIALIST) Only the most recent of 2 results within the time period is included. Urine culture isolate [facility] ~No growth [facility]OSPITAL after 10 hours No growth after 24 hours Comment: Specimen Information Specimen Source: Urine Specimen Site: Clean catch Specimen Urine Performing Organization Address [facility] Centercode Phone Number [facility] [place] [address] PATHOLOGY AND GENOMIC MEDICINE [address] * Triglycerides (12/31/2017 1:11 PM SOFTWARE CONFIGURATION SPECIALIST) Only the most recent of 3 results within the time period is included. Triglycerides 112 <150 mg/dL [facility] Specimen Plasma specimen Performing Organization Address [facility] Centercode Phone Number [facility] [place] [address] PATHOLOGY AND GENOMIC MEDICINE [address] * XR Chest 1 Vw Portable (12/31/2017 9:33 AM SOFTWARE CONFIGURATION SPECIALIST) Only the most recent of 3 results within the time period is included. Narrative Performed At Examination:XR CHEST 1 VW PORTABLE [facility] Clinical history:"Chest Tube Placement" Comparison:Most recent chest radiograph. Impression: Interval repositioning of feeding tube with tip and sideholes located below the diaphragm within the stomach. Left upper extremity PICC line with tip ending within proximal SVC. There are no new alveolar opacities within either lung. Opacities within both lung bases appear unchanged.Mild bilateral pleural effusion. No pneumothoraces are identified. Stable cardiomegaly and poorly venous congestion. Tortuous atherosclerotic thoracic aorta. Moderate-sized hiatal hernia. [facility]-[id number] Procedure Note Interface, Radiology Results Incoming - 12/31/2017 9:42 AM SOFTWARE CONFIGURATION SPECIALIST Examination: XR CHEST 1 VW PORTABLE Clinical history: "Chest Tube Placement" Comparison: Most recent chest radiograph. Impression: Interval repositioning of feeding tube with tip and sideholes located below the diaphragm within the stomach. Left upper extremity PICC line with tip ending within proximal SVC. There are no new alveolar opacities within either lung. Opacities within both lung bases appear unchanged. Mild bilateral pleural effusion. No pneumothoraces are identified. Stable cardiomegaly and poorly venous congestion. Tortuous atherosclerotic thoracic aorta. Moderate-sized hiatal hernia. [facility]-[id number] Performing Organization Address City/[facility]/Zipcode Phone Number [employer] [address] [place] [address] * Potassium level (12/30/2017 9:00 PM SOFTWARE CONFIGURATION SPECIALIST) Potassium 2.9 (LL) 3.5 - 5.0 mEq/L [facility] Specimen Plasma specimen Performing Organization Address City/[facility] Phone Number [facility] DEPARTMENT OF [address] [place] [address] PATHOLOGY AND GENOMIC MEDICINE [address] * Comprehensive metabolic panel (12/30/2017 6:00 AM SOFTWARE CONFIGURATION SPECIALIST) Sodium 140 135 - 148 mEq/L [facility] Potassium 4.0 3.5 - 5.0 mEq/L [facility] Chloride 105 98 - 112 mEq/L [facility] CO2 27 24 - 31 mEq/L [facility] Anion gap 8@ANIO 7 - 15 mEq/L [facility] BUN 11 8 - 23 mg/dL [facility] [facility] Creatinine 0.75 0.50 - 0.90 mg/dL [facility] Glucose 108 (H) 65 - 99 mg/dL [facility] Calcium 7.8 (L) 8.8 - 10.2 mg/dL [facility] Protein 5.1 (L) 6.3 - 8.3 g/dL [facility] Comment: HOSPITAL [place] 4.6-7.0 g/dL 1 week 4.4-7.6 g/dL 7 months-1year 5.1-7.3 g/dL 1-2 years5.6-7 .5 g/dL >3 years6.0-8 .0 g/dL 18-150 6.3-8.3 g/dL Albumin 1.7 (L) 3.5 - 5.0 g/dL [facility] A/G ratio 0.5 (L) 0.7 - 3.8 [facility] Alkaline phosphatase 79 35 - 104 U/L [facility] AST 40 (H) 10 - 35 U/L [facility] ALT 32 5 - 50 U/L [facility] Total bilirubin 0.3 0.0 - 1.2 mg/dL [facility] Specimen Plasma specimen Performing Organization Address City/[facility] Phone Number [facility] DEPARTMENT OF [address] [place] [address] PATHOLOGY AND GENOMIC MEDICINE [address] * XR Picc Chest Portable (12/29/2017 11:33 AM SOFTWARE CONFIGURATION SPECIALIST) Narrative Performed At EXAMINATION:XR [facility] CHEST [facility] CLINICAL HISTORY:S72.002A Fracture of unspecified part of neck of left femurinitial encounter for closed fracture, TPN COMPARISON:December 25, 2017 IMPRESSION: There is a nasogastric tube coiled The heart presumably hernia.The heart size is normal.Pulmonary vessels are in the normal range.There some patchy atelectasis and small pleural effusion or rind at the left lung base otherwise the lung eason are clear. [facility]-[id number] Procedure Note Interface, Radiology Results Incoming - 12/29/2017 11:43 AM SOFTWARE CONFIGURATION SPECIALIST EXAMINATION: XR PICC CHEST PORTABLE CLINICAL HISTORY: S72.002A Fracture of unspecified part of neck of left femur initial encounter for closed fracture, TPN COMPARISON:December 25, 2017 IMPRESSION: There is a nasogastric tube coiled The heart presumably hernia. The heart size is normal. Pulmonary vessels are in the normal range. There some patchy atelectasis and small pleural effusion or rind at the left lung base otherwise the lung eason are clear. [facility]-[id number] Performing Organization Address City/[facility] Phone Number TOLU CROOK [address] [place] [address] * PICC insertion (12/29/2017 11:24 AM SOFTWARE CONFIGURATION SPECIALIST) Narrative Performed At Onofre Marcus RN 12/29/2017 11:27 AM PICC insertion Date/Time: 12/29/2017 11:24 AM Performed by: Onofre Marcus RN Authorized by: Chester Montano MD Consent: Consent obtained:Verbal Consent given by:Patient Risks discussed: arterial puncture, incorrect placement, nerve damage, infection, bleeding, superficial thrombus and deep vein thrombus Alternatives discussed:Delayed treatment and alternative treatment Frakes protocol: Procedure explained and questions answered to patient or proxy's satisfaction: yes Relevant documents present and verified: yes Test results available and properly labeled: yes Imaging studies available: yes Required blood products, implants, devices, and special equipment available: yes Site/side marked: yes Immediately prior to procedure, a time out was called: yes Patient identity confirmed:Provided demographic data, arm band, verbally with patient and hospital-assigned identification number Pre-procedure details: Hand hygiene: Hand hygiene performed prior to insertion Sterile barrier technique: All elements of maximal sterile technique followed Skin preparation:ChloraPrep Skin preparation agent: Skin preparation agent completely dried prior to procedure Anesthesia (see MAR for exact dosages): Anesthesia method:Local infiltration Local anesthetic:Lidocaine 1% w/o epi PICC Line Placement Details (Will create an LDA): Patient position:Flat Vessel Size (mm): 4.4mm. Indication:TPN Location:Left basilic Site selection rationale:Right arm Veins Small. patient dehydrated. Device Type:Non-valved Catheter size:5 Fr PICC Characteristics: Catheter Brand:BIOFLO PICC Internal Catheter Length (cm):39 Total Catheter Length (cm):39 Catheter Lot Number:[id number] Catheter Expiration Date:10/15/2019 Procedure Details: Landmarks identified: yes Ultrasound guidance: yes Sterile ultrasound techniques: Sterile gel and sterile probe covers were used Number of attempts:1 Number of PICC kits used during procedure:1 Purpose of procedure:PICC Placement Successful PICC Placement: Yes Patency/Placement:Flushes without difficulty, flushed with 10 mL normal saline, x-ray placement verified, injection cap placed and positive blood return PICC placed utlizing ultrasound-guided Modified Seldinger Technique: Yes Dressing/Securement:Antimicrobial dressing dry and intact, catheter securement device, antimicrobial dressing applied and dressing dry and intact Blood Loss Amount:Less than 20 mL Post-Procedure Details: Post-procedure:Dressing applied Tip placement confirmed by chest x-ray: Yes Patient tolerance of procedure:Tolerated well, no immediate complications * Pv duplex venous upper extremity (12/28/2017 2:33 PM SOFTWARE CONFIGURATION SPECIALIST) Narrative Performed At [facility] Vascular Ultrasound Laboratory Upper Extremity Venous Report [address] [place] [address] Pat.Name:TATIANA JENSEN [facility].ID:[id number] .Date: 12/28/2017Refer.MD:CHESTER MONTANO MD Exam Time: 2:26:00 PMStudy Type:UE Venous Height:64inBSA: 1.86 m2 DOBAge:1935,82YSex: FEMALE Sonogrphr: Raven Vo RVT Pat. Stat.:Inpatient Room:S1I-[id number]: CAMELIA, CPT - 4: 58035 Echo Event ID:[id number] Order ID:[id number] Reason for Study:UE swelling. Procedures:Colorflow, Grayscale/2D, Pulsed wave Doppler SUMMARY: DUPLEX SCAN OBSERVATIONS Right Left IJNormal SubclavianNormal Normal AxillaryNormal BrachialNormal BasilicNormal CephalicNot Visualized RIGHT: There is normal compressibility and no evidence of echogenic material noted within the lumen of the visualized veins. Colorflow and Doppler signals are normal. LEFT: There is normal compressibility and no evidence of echogenic material noted within the lumen of the subclavian vein. Colorflow and Doppler signals are normal. PRELIMINARY FINDINGS 1. No evidence venous thrombosis of visualized veins in right upper extremity and left subclavian vein. PHYSICIAN INTERPRETATION Venous examination of the right upper extremity and left subclavian vein demonstrated no evidence of venous thrombosis. Signed 12/28/2017 10:57 PM Joselito Lugo MD, JOE Procedure Note Interface, Radiology Results In - 12/28/2017 10:57 PM SOFTWARE CONFIGURATION SPECIALIST Vascular Ultrasound Laboratory Upper Extremity Venous Report [id number] [facility] [address], [place] [id number] Pat.Name: TATIANA JENSEN.ID: [id number] .Date: 12/28/2017 Refer.MD: CHESTER MONTANO MD Exam Time: 2:26:00 PM Study Type:UE Venous Height: 64in BSA: 1.86 m2 Age: 2 1935,82Y Sex: FEMALE Sonogrphr: Raven Vo RVT Pat. Stat.:Inpatient Room: [address] Vol: JJ, CPT - 4: 48040 Echo Event ID:[id number] Order ID: [id number] Reason for Study:UE swelling. Procedures:Colorflow, Grayscale/2D, Pulsed wave Doppler SUMMARY: DUPLEX SCAN OBSERVATIONS Right Left IJ Normal Subclavian Normal Normal Axillary Normal Brachial Normal Basilic Normal Cephalic Not Visualized RIGHT: There is normal compressibility and no evidence of echogenic material noted within the lumen of the visualized veins. Colorflow and Doppler signals are normal. LEFT: There is normal compressibility and no evidence of echogenic material noted within the lumen of the subclavian vein. Colorflow and Doppler signals are normal. PRELIMINARY FINDINGS 1. No evidence venous thrombosis of visualized veins in right upper extremity and left subclavian vein. PHYSICIAN INTERPRETATION Venous examination of the right upper extremity and left subclavian vein demonstrated no evidence of venous thrombosis. Signed 12/28/2017 10:57 PM Joselito Lugo MD, JOE Performing Organization Address City/State/Zipcode Phone Number [facility] [address] [place] [address] * XR Abdomen 1 Vw (12/28/2017 2:03 PM SOFTWARE CONFIGURATION SPECIALIST) Narrative Performed At EXAMINATION:XR ABDOMEN 1 VW RADIANT CLINICAL HISTORY: ileus vs SBO COMPARISON:Abdominal radiograph from 12/27/[address] abdomen/pelvis from 12/28/2017 IMPRESSION: 1.There is an overall stable configuration of dilated small bowel loops, measuring 5.4 cm maximum diameter. There is a paucity of air in the colon with a very small amount seen in the rectum. Findings are most consistent with small bowel obstruction. There is no pneumoperitoneum. Nasogastric tube present with tip and sidehole within a large hiatal hernia with associated intrathoracic stomach. 2.No pathologic intra-abdominal calcifications are appreciated. 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 4.Retrocardiac left lower lobe consolidation is unchanged. Small bilateral pleural effusions. I personally reviewed the images and the resident's findings and agree with the final report. [facility]-[id number] Procedure Note Interface, Radiology Results Incoming - 12/28/2017 3:20 PM SOFTWARE CONFIGURATION SPECIALIST EXAMINATION: XR ABDOMEN 1 VW CLINICAL HISTORY: ileus vs SBO COMPARISON: Abdominal radiograph from 12/27/[address] abdomen/pelvis from 12/28/2017 IMPRESSION: 1. There is an overall stable configuration of dilated small bowel loops, measuring 5.4 cm maximum diameter. There is a paucity of air in the colon with a very small amount seen in the rectum. Findings are most consistent with small bowel obstruction. There is no pneumoperitoneum. Nasogastric tube present with tip and sidehole within a large hiatal hernia with associated intrathoracic stomach. 2. No pathologic intra-abdominal calcifications are appreciated. 3. Patient is status post arthroplasty of the left hip. Moderate osteoarthritis of the right hip is noted. 4. Retrocardiac left lower lobe consolidation is unchanged. Small bilateral pleural effusions. I personally reviewed the images and the resident's findings and agree with the final report. [facility]-[id number] Performing Organization Address City/State/Zipcode Phone Number [facility] [address] [place] [address] * CT Abdomen Pelvis Wo Contrast (12/28/2017 1:53 PM SOFTWARE CONFIGURATION SPECIALIST) Narrative Performed At EXAMINATION:CT ABDOMEN PELVIS WO [facility]AST [facility] CLINICAL HISTORY:bowel obstruction TECHNIQUE: Noncontrast images of the abdomen and pelvis were obtained without intravenous iodinated contrast. The lack of intravenous contrast limits assessment of the solid organs. CT imaging was performed with iterative reconstruction technique and/or automated exposure control to reduce radiation dose. COMPARISON: Abdominal radiograph 12/27/2017 FINDINGS: LUNG BASES: Small bilateral pleural effusions with adjacent atelectasis. Large hiatal hernia containing nearly the entire stomach. Multifocal vascular calcifications. ABDOMEN: Liver: The liver is normal. No focal mass. Gallbladder: Gallbladder is not visualized. Spleen: The spleen is not enlarged. Pancreas: The pancreas is unremarkable. Adrenal Glands: The adrenal glands are unremarkable. Kidneys: Mild bilateral perinephric stranding, nonspecific. Vascular: Extensive calcifications of the aorta and branch vessels. Nodes: No enlarged retroperitoneal or mesenteric lymphadenopathy. Bowel: Small bowel obstruction with the transition point located in the lower right abdomen, at the level of an acute angulation: image 99 of the axial images, image 32 of the coronal images, image 48 of sagittal images. The small bowel distal to this region is decompressed. A few colonic diverticula are present. Ascites/fluid collections: Trace abdominal ascites. PELVIS: Small amount of fluid layers into the pelvis. MUSCULOSKELETAL: Recent left hip arthroplasty with surrounding stranding and soft tissue emphysema. Spondylosis. Diffuse osteopenia. Age-indeterminate mild height loss of T11. IMPRESSION: 1.Small bowel obstruction with acutely angulated transition point in the right lower quadrant. 2.Small bilateral pleural effusions with adjacent atelectasis. 3.Large hiatal hernia containing nearly the entire stomach. 4.Trace abdominal ascites layering in the pelvis. [facility]-[id number] Procedure Note [facility], Radiology Results [facility] - 12/28/2017 2:06 PM SOFTWARE CONFIGURATION SPECIALIST EXAMINATION: CT ABDOMEN PELVIS WO CONTRAST CLINICAL HISTORY: bowel obstruction TECHNIQUE: Noncontrast images of the abdomen and pelvis were obtained without intravenous iodinated contrast. The lack of intravenous contrast limits assessment of the solid organs. CT imaging was performed with iterative reconstruction technique and/or automated exposure control to reduce radiation dose. COMPARISON: Abdominal radiograph 12/27/2017 FINDINGS: LUNG BASES: Small bilateral pleural effusions with adjacent atelectasis. Large hiatal hernia containing nearly the entire stomach. Multifocal vascular calcifications. ABDOMEN: Liver: The liver is normal. No focal mass. Gallbladder: Gallbladder is not visualized. Spleen: The spleen is not enlarged. Pancreas: The pancreas is unremarkable. Adrenal Glands: The adrenal glands are unremarkable. Kidneys: Mild bilateral perinephric stranding, nonspecific. Vascular: Extensive calcifications of the aorta and branch vessels. Nodes: No enlarged retroperitoneal or mesenteric lymphadenopathy. Bowel: Small bowel obstruction with the transition point located in the lower right abdomen, at the level of an acute angulation: image 99 of the axial images, image 32 of the coronal images, image 48 of sagittal images. The small bowel distal to this region is decompressed. A few colonic diverticula are present. Ascites/fluid collections: Trace abdominal ascites. PELVIS: Small amount of fluid layers into the pelvis. MUSCULOSKELETAL: Recent left hip arthroplasty with surrounding stranding and soft tissue emphysema. Spondylosis. Diffuse osteopenia. Age-indeterminate mild height loss of T11. IMPRESSION: 1. Small bowel obstruction with acutely angulated transition point in the right lower quadrant. 2. Small bilateral pleural effusions with adjacent atelectasis. 3. Large hiatal hernia containing nearly the entire stomach. 4. Trace abdominal ascites layering in the pelvis. [facility]-[id number] Performing Organization Address City/[facility]/[place] [address] * Hemoglobin & hematocrit (12/27/2017 4:20 AM SOFTWARE CONFIGURATION SPECIALIST) HGB 11.5 (L) 12.0 - 16.0 g/dL [facility] HCT 35.2 (L) 37.0 - 47.0 % [facility] Specimen Blood Performing Organization Address [facility]/Zipcode Phone Number [facility] DEPARTMENT OF [address] [place] [address] PATHOLOGY AND GENOMIC MEDICINE [address] * Echocardiogram complete w contrast and 3D if needed (12/26/2017 9:40 PM SOFTWARE CONFIGURATION SPECIALIST) Narrative Performed At [facility] Echocardiography Report [address] [place] [address] Pat.Name:TATIANA JENSEN RPaserge.ID:[id number] .Date: 12/26/2017Refer.MD:CHESTER MONTANO MD Exam Time: 8:59:00 PMStudy Type:Routine Echo Height:64.02in Weight:177.76lb BSA: 1.86 m2 DOBAge:1935,82Y Sex: FEMALEBP:163/71 HR:59 bpmSonogrphr: MISTY Joyce Pat. Stat.:Inpatient Room:[address] Study Status:Final Echo Event ID:[id number] Order ID:[id number] Reason for Study:Aortic [place] Valvular Stenosis - Routine surveillance (=1 y) of moderate or severe valvular stenosis without a change in clinical status or cardiac exam Procedures:2D Echo, Colorflow Doppler, Strain, Portable Race: SUMMARY: LV EF is hyperdynamic. RV systolic function is normal. Mild to moderate aortic regurgitation. Moderate aortic valve stenosis. FINDINGS: LV: LV size is small. Concentric left ventricular remodeling. LV EFis hyperdynamic. Overall wall motion is hyperdynamic. EstimatedEF is >70%. RV: RV size is normal. RV systolic function is normal. RV wall motionis normal. LA: LA volume is severely enlarged. RA: RA volume is normal. AO: Aortic root diameter is normal. MOSHE: No pericardial effusion. AV: Mild to moderate thickening and calcification of AV leaflets.Mild to moderate aortic regurgitation. Moderate aorticvalve stenosis. MV: Mild to moderate thickening and calcification of mitral leaflets.Moderate mitral annular calcification. Thickened and/orcalcified chordae. PV: Pulmonic valve not well seen. TV: No structural TV abnormalities noted. A trace of tricuspid regurgitation Veliz: LV relaxation is impaired. LV filling pressure is elevated. Other:Insufficient TR jet to estimate PA systolic pressure. MEASUREMENTS: 2D Parasternal Long [place] LVOT 1.7 cmLA Ds3.3 cm LVIDd3.4 cmIndex1.9 cm/m Ao Rtd 2.9 cm Index1.6 cm/m LVIDs1.7 cmLV Pdfz153.2 g(87-129) LV%fs 50.4 % LVM Index 82.9 g/m2 IVSd 1.5 cmRWT0.7 LVPWd1.2 cm LA Sng Plane LA Area 27.7 cm2(8.8-23.4) LA Vol88.9 ml Index47.8 ml/m LA LngAx 7.1 cm RA Sng Plane RA Area 14.6 cm2(8.3-19.5) RA Vol31.9 ml Index17.1 ml/m RA LngAx 5.6 cm DOPPLER AV For Flow/DANIELLA AV pkVel 369.6 cm/s (100-170) AV AC/ET 0.3 AV mnVel 252.4 cm/Slim TVI96.1 cm AV pkPG 54.6 mmHgAVpkAcRt 5820.1 cm/s2 AV Mean G 30.6 mmHgAV MrZs790.7 cm/s2 AV AC114 msec (83-118) AV Area1.1 cm2(3-5) AV ET381 msec LVOT For Flow LVOT Area2.3 cm2 LVOT SV104.9 ml QDRFbvLcm119 cm/sHR59.3 bpm LVOTpkPG 8.9 mmHgLVOT CO6.2 l/min LVOTmnPG 6.4 mmHgLVOT CI3.3 l/m/m2 LVOT TVI46.2 cm Signed 12/27/2017 11:15 AM Aimee Lopez M.D. Procedure Note Interface, Radiology Results In - 12/27/2017 11:16 AM SOFTWARE CONFIGURATION SPECIALIST Echocardiography Report [address] [place] [address] Pat.Name: TATIANA JENSEN Arlyn.ID: [id number] .Date: 12/26/2017 Refer.MD: CHESTER MONTANO MD Exam Time: 8:59:00 PM Study Type:Routine Echo Height: 64.02in Weight: 177.76lb BSA: 1.86 m2 Age: 2 1935,82Y Sex: FEMALE BP: 163/71 HR: 59 bpm Sonogrphr: MISTY Joyce Pat. Stat.:Inpatient Room: ELAINE 7W Study Status:Final Echo Event ID:[id number] Order ID: [id number] Reason for Study:Aortic [place] Valvular Stenosis - Routine surveillance (=1 y) of moderate or severe valvular stenosis without a change in clinical status or cardiac exam Procedures:2D Echo, Colorflow Doppler, Strain, Portable Race: SUMMARY: LV EF is hyperdynamic. RV systolic function is normal. Mild to moderate aortic regurgitation. Moderate aortic valve stenosis. FINDINGS: LV: LV size is small. Concentric left ventricular remodeling. LV EF is hyperdynamic. Overall wall motion is hyperdynamic. Estimated EF is >70%. RV: RV size is normal. RV systolic function is normal. RV wall motion is normal. LA: LA volume is severely enlarged. RA: RA volume is normal. AO: Aortic root diameter is normal. MOSHE: No pericardial effusion. AV: Mild to moderate thickening and calcification of AV leaflets. Mild to moderate aortic regurgitation. Moderate aortic valve stenosis. MV: Mild to moderate thickening and calcification of mitral leaflets. Moderate mitral annular calcification. Thickened and/or calcified chordae. PV: Pulmonic valve not well seen. TV: No structural TV abnormalities noted. A trace of tricuspid regurgitation Veliz: LV relaxation is impaired. LV filling pressure is elevated. Other: Insufficient TR jet to estimate PA systolic pressure. MEASUREMENTS: 2D Parasternal Long [place] LVOT 1.7 cm LA Ds 3.3 cm LVIDd 3.4 cm Index 1.9 cm/m Ao Rtd 2.9 cm Index 1.6 cm/m LVIDs 1.7 cm LV Mass 154.2 g (87-129) LV%fs 50.4 % LVM Index 82.9 g/m2 IVSd 1.5 cm RWT 0.7 LVPWd 1.2 cm LA Sng Plane LA Area 27.7 cm2 (8.8-23.4) LA Vol 88.9 ml Index 47.8 ml/m LA LngAx 7.1 cm RA Sng Plane RA Area 14.6 cm2 (8.3-19.5) RA Vol 31.9 ml Index 17.1 ml/m RA LngAx 5.6 cm DOPPLER AV For Flow/DANIELLA AV pkVel 369.6 cm/s (100-170) AV AC/ET 0.3 AV mnVel 252.4 cm/s AV TVI 96.1 cm AV pkPG 54.6 mmHg AVpkAcRt 5820.1 cm/s2 AV Mean G 30.6 mmHg AV DeRt 970.7 cm/s2 AV AC 114 msec (83-118) AV Area 1.1 cm2 (3-5) AV ET 381 msec LVOT For Flow LVOT Area 2.3 cm2 LVOT SV 104.9 ml LVOTpkVel 149 cm/s HR 59.3 bpm LVOTpkPG 8.9 mmHg LVOT CO 6.2 l/min LVOTmnPG 6.4 mmHg LVOT CI 3.3 l/m/m2 LVOT TVI 46.2 cm Signed 12/27/2017 11:15 AM Aimee Lopez M.D. Performing Organization Address City/State/Zipcode Phone Number [facility] [address] [place] [address] * XR Pelvis 1 Or 2 Vw (12/26/2017 5:27 PM SOFTWARE CONFIGURATION SPECIALIST) Only the most recent of 3 results within the time period is included. Narrative Performed At EXAMINATION: XR PELVIS 1 OR 2 VW RADIANT INDICATION: post opobtain in PACU COMPARISON: Same day 1601 hours IMPRESSION: Status post left hip arthroplasty without evidence of hardware failure. Expected surrounding soft-tissue swelling and emphysema. [facility]-[id number] Procedure Note [facility], Radiology Results Incoming - 12/26/2017 5:32 PM SOFTWARE CONFIGURATION SPECIALIST EXAMINATION: XR PELVIS 1 OR 2 VW INDICATION: post op obtain in PACU COMPARISON: Same day 1601 hours IMPRESSION: Status post left hip arthroplasty without evidence of hardware failure. Expected surrounding soft-tissue swelling and emphysema. [facility]-[id number] Performing Organization Address City/[facility]/Zipcode Phone Number [facility] [address] [place] [id number] * Surgical pathology request (12/26/2017 4:57 PM SOFTWARE CONFIGURATION SPECIALIST) [facility] DEPARTMENT OF PATHOLOGY AND GENOMIC MEDICINE Surgical pathology report See link below for PDF Lab [facility] DEPARTMENT OF Report PATHOLOGY AND GENOMIC MEDICINE Result status This is Final Report for [facility] DEPARTMENT OF [id number] PATHOLOGY AND GENOMIC MEDICINE Performing Organization Address City/[facility] Phone Number [facility] DEPARTMENT OF [address] [place] [id number] PATHOLOGY AND GENOMIC MEDICINE * Prothrombin time with INR (12/26/2017 3:40 AM SOFTWARE CONFIGURATION SPECIALIST) Prothrombin time 14.5 11.5 - 14.5 sec [facility] INR 1.2 [facility] Comment: HOSPITAL The International Normalized Ratio (INR) is a therapeutic monitoring tool for patients who are stable on oral anticoagulant therapy. An INR of 2.0-3.0 is suggested for deep vein thrombosis/pulmonary embolism. Specimen Blood Performing Organization Address [facility] Phone Number [facility] DEPARTMENT OF [address] [place] [address] PATHOLOGY AND GENOMIC MEDICINE [address] * CBC hemogram (12/25/2017 4:00 AM SOFTWARE CONFIGURATION SPECIALIST) WBC 18.53 (H) 4.50 - 11.00 k/uL [facility] RBC 3.61 (L) 4.20 - 5.50 m/uL [facility] HGB 11.5 (L) 12.0 - 16.0 g/dL [facility] HCT 34.5 (L) 37.0 - 47.0 % [facility] MCV 95.6 82.0 - 100.0 fL [facility] MCH 31.9 27.0 - 34.0 pg [facility] MCHC 33.3 31.0 - 37.0 g/dL [facility] RDW - SD 45.1 37.0 - 55.0 fL [facility] MPV 10.4 8.8 - 13.2 fL [facility] Platelet count 241 150 - 400 k/uL [facility] Nucleated RBC 0.00 /100 WBC [facility] Performing Organization Address City/[facility] Phone Number [facility] DEPARTMENT OF [address] [place] [address] PATHOLOGY AND GENOMIC MEDICINE [id number] [place] [address] * XR Femur 2 Vw Left (12/25/2017 12:10 AM SOFTWARE CONFIGURATION SPECIALIST) Narrative Performed At Examination:XR FEMUR 2 VW LEFT RADIANT Clinical History: Fracturefemur Comparison: None. Findings: 2 views left femur are obtained. There is a fracture of the subcapital neck of the left proximal femur. Remainder of the left femur is intact. Soft tissues unremarkable. IMPRESSION: 1. Please see report of left hip for subcapital neck fracture of the left proximal femur. Remainder of the left femur is intact. [id number] Procedure Note Interface, Radiology Results Incoming - 12/25/2017 12:25 AM SOFTWARE CONFIGURATION SPECIALIST Examination: XR FEMUR 2 VW LEFT Clinical History: Fracture femur Comparison: None. Findings: 2 views left femur are obtained. There is a fracture of the subcapital neck of the left proximal femur. Remainder of the left femur is intact. Soft tissues unremarkable. IMPRESSION: 1. Please see report of left hip for subcapital neck fracture of the left proximal femur. Remainder of the left femur is intact. [id number] Performing Organization Address [facility] Phone Number [facility] [address] [place] [address] * XR Knee 1 Or 2 Vw Left (12/25/2017 12:10 AM SOFTWARE CONFIGURATION SPECIALIST) Narrative Performed At Examination:XR KNEE 1 OR 2 VW LEFT [facility] Clinical History: femur fracture Comparison: None. Findings: 2 views of the left knee are obtained. There is moderate joint space narrowing of the medial compartment. There is mild joint space narrowing of the lateral compartment with mild spurring. Chondrocalcinosis is noted medially and laterally. No joint effusion is seen. No acute fracture or dislocation is seen. IMPRESSION: 1. 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 [id number] Procedure Note Hm Interface, Radiology Results Incoming - 12/25/2017 12:26 AM SOFTWARE CONFIGURATION SPECIALIST Examination: XR KNEE 1 OR 2 VW LEFT Clinical History: femur fracture Comparison: None. Findings: 2 views of the left knee are obtained. There is moderate joint space narrowing of the medial compartment. There is mild joint space narrowing of the lateral compartment with mild spurring. Chondrocalcinosis is noted medially and laterally. No joint effusion is seen. No acute fracture or dislocation is seen. IMPRESSION: 1. 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 [id number] Performing Organization Address City/State/Zipcode Phone Number [facility] [address] [place] [address] after 03/02/2017 Insurance Payer Benefit Subscriber ID Type Phone Address Plan / Group MEDICARE MEDICARE xxxxxxxxxxx Medicare [place], [place] PART A AND B AARP AARP xxxxxxxxxxx Commercial SUPPLEMENT Advance Directives Patient has advance care planning documents, and code status on file. For more i nformation, please contact: Ryan Chen [address] [place] [address] Date Inactivated Comments Code Status Date Activated 01/10/2018 9:57 PM DNR 12/24/2017 9:12 PM Code Status decision reached by: Patient
--- NOTE | 2018-03-03 18:44 | Diagnostic Imaging Report ---
Exam: Head CT without contrast Indication: Fall, hit back of head Comparison: Head CT 06/10/2016 Technique: Axial images were obtained from the skull base to the vertex. Coronal and sagittal images reconstructed from the axial data. Dose modulation, iterative reconstruction, and/or weight based adjustment of the mA/kV was utilized to reduce the radiation dose to as low as reasonably achievable. Intravenous contrast: None Findings: Scalp/skull: Small focal contusion about the midline posterior occiput. No underlying calvarial fractures. Incidental hyperostosis frontalis Extra-axial spaces: No masses. No fluid collections. Brain sulci: Mildly prominent. Ventricles: Mild compensatory dilatation. No hydrocephalus. Parenchyma: Unchanged hypodensity within the caudate head and para median lower princess. Confluent hypodensities in the supratentorial white matter are small vessel ischemic changes. Sellar/suprasellar region: No abnormalities. Craniocervical junction: Patent foramen magnum. No Chiari one malformation. Incidental findings: Atherosclerotic calcifications in the carotid siphons and vertebral arteries. Right lens replacement and bilateral orbital "senile" calcification. Aerated secretions within the posterior most right ethmoid air cells. Impression: Tiny soft tissue contusion about the occiput without underlying calvarial abnormality. Otherwise, no changes when compared to head CT dated 06/10/2016. Chronic findings: 1. Mild generalized volume loss. 2. Advanced supratentorial white matter small vessel ischemic changes. 3. 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 A preliminary report was provided by Dr. Lopez on 03/03/2018 6:43 PM. I have reviewed the images and agree with findings in the preliminary report. Signed by: Dr. Archana Gomez M.D. on 03/03/2018 7:40 PM
[2018-03-03 21:52] VITALS: BP 165/69
== END 2018-03-03 22:00 | disposition home or self-care (01) ==
LOC: ER 16:48
DX: S00.93XA Contusion of unspecified part of head, initial encounter (principal); S60.051A Contusion of right little finger without damage to nail, initial encounter; W01.0XXA Fall on same level from slipping, tripping and stumbling without subsequent striking against object, initial encounter; Y92.008 Other place in unspecified non-institutional (private) residence as the place of occurrence of the external cause
CPT/HCPCS: 70450; 99283